=== PATIENT | male | born 1990 | race Caucasian/White ===

== ENCOUNTER → 2021-06-21 16:04 | Outpatient (BNVA) | payer OTHER, SELFPAY | PROVIDERS: PCP Pediatrics; Visit Provider Nurse Practitioner Family ==

== ENCOUNTER → 2021-09-16 13:15 | Outpatient (BNVA) | payer OTHER, SELFPAY | PROVIDERS: PCP Pediatrics; Visit Provider Nurse Practitioner Family | DX: Z13.89 Encounter for screening for other disorder (principal) ==

== ENCOUNTER → 2022-10-03 14:29 | Outpatient (BNVA) | payer OTHER, SELFPAY | PROVIDERS: PCP Internal Medicine; Visit Provider Nurse Practitioner Family | DX: G47.33 Obstructive sleep apnea (adult) (pediatric) (principal); G47.00 Insomnia, unspecified; G47.61 Periodic limb movement disorder; F95.2 Tourette's disorder ==

== ENCOUNTER 2022-12-22 13:10 | Outpatient (AMB) | payer OTHER, SELFPAY ==
--- NOTE | 2022-12-22 13:17 | MHC.OFFVIS ---
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 Required: No Allergies ascorbic acid [From Airborne (ascorbate sodium)] Allergy (Mild, Verified 12/22/22 13:25) Unknown glutamine [From Airborne (ascorbate sodium)] Allergy (Mild, Verified 12/22/22 13:25) Unknown herbal complex no.124 [From Airborne (ascorbate sodium)] Allergy (Mild, Verified 12/22/22 13:25) Unknown Latex, Natural Rubber Allergy (Mild, Verified 12/22/22 13:25) Unknown lysine HCl [From Airborne (ascorbate sodium)] Allergy (Mild, Verified 12/22/22 13:25) Unknown multivitamin with minerals [From Airborne (ascorbate sodium)] Allergy (Mild, Verified 12/22/22 13:25) Unknown perfume Allergy (Mild, Verified 12/22/22 13:25) Unknown risperidone [From Risperdal] Allergy (Mild, Verified 12/22/22 13:25) Unknown Sulfa (Sulfonamide Antibiotics) Allergy (Mild, Verified 12/22/22 13:25) unknown chemical based products Allergy (Mild, Uncoded 12/22/22 13:25) Unknown cleaning products Allergy (Mild, Uncoded 12/22/22 13:25) Unknown cologna Allergy (Mild, Uncoded 12/22/22 13:25) Unknown tennex Allergy (Mild, Uncoded 12/22/22 13:25) Unknown HPI HPI Comments History of Present Illness Details the patient is here for pulmonary evaluation. The patient is a 32-year-old gentleman with a known history of asthma in addition to underlying allergies. The patient also has a diagnosis of sleep apnea and has been on CPAP. Apparently while he was evaluated by Pulmonary in the past he had a abnormal alpha-1 antitrypsin study. The family is not way of any genotype or levels. Apparently the abnormal allele came from the dad. He is not clear if the mom has an abnormal early 0. Will have to redo the genotype at this time. Also check his alpha-1 levels. In the meantime the patient has been on Trelegy inhaler with good effect. He has not had to use his rescue inhaler. Typically less than twice a week. Has not required prednisone. He has not had allergy testing many years. Will go ahead and recheck his allergy testing and also his alpha-1 levels. The patient seems to be stable on his current therapy. Will have him come back with pulmonary function studies. Patient also continues uses CPAP. He has been followed closely by Neurology. The CPAP therapy appears to be affecting beneficial. He does use it for more than 4 hours a night. He does use a nasal mask any does get a very dry mouth. Explained to him this can result in poor disease of the gingiva and 2 DKA. Therefore, the patient will start using a chinstrap. I will request from from his [employer], and regional. [facility] Medical History (Updated 12/22/22 @ 13:51 by Julian Reed MD) Fjtbp-1-inmzbtqctav deficiency Anxiety Arthritis Aspergers' syndrome Asthma Autism Cervicalgia Depression Dyspnea Fibromyalgia GERD (gastroesophageal reflux disease) Hyperreflexia Hypothyroidism IBS (irritable bowel syndrome) Myofascial pain syndrome PTSD (post-traumatic stress disorder) Rhinitis Scoliosis Seizure Tachycardia Tourette syndrome Social History (Updated 10/03/22 @ 14:35 by Alexus Esparza CMA) Alcohol intake: never Patient Tobacco Use Status: Never used Tobacco Review of Systems Const Denies fever(s) Eyes Denies change in vision ENT Denies change in voice and Reports nasal congestion Card Denies chest pain Resp Reports cough and Reports wheezing GI Reports no additional complaints Musc Reports no additional complaints Skin/Breast Denies rash Neuro Reports no additional complaints Abran/Lymph Denies lymphadenopathy Aller/Immun Reports wheezing Physical Exam Vital Signs: Last Vital Signs Pulse 69 12/22/22 13:19 BP 100/60 12/22/22 13:19 Pulse Ox 95 12/22/22 13:19 Oxygen Delivery Method Room Air 12/22/22 13:19 BMI result Body Mass Index 28.3 Const General: comfortable HEENT Head: Yes atraumatic Neck Neck: Yes supple Chest Chest palpation & inspection: normal inspection of the chest Resp Effort & Inspection: normal respiratory effort Auscultation: clear to auscultation bilaterally and no wheezes Cardio Rate: regular rate Rhythm: regular rhythm Heart sounds: S1 normal heart sound present and S2 normal heart sound present GI Palpation (GI): Soft to palpation Skin General skin exam: no rashes or lesions noted Extrem General: Yes no clubbing, cyanosis or edema Assessment & Plan Assessment & Plan (1) Obstructive sleep apnea (adult) (pediatric): Comment: Baseline ahi 19/hr Supine 76/hr O2 paty 85 %. Code(s): G47.33 - Obstructive sleep apnea (adult) (pediatric) (2) Asthma: Code(s): J45.909 - Unspecified asthma, uncomplicated (3) Ueeze-2-ogivdwamvdb deficiency: Code(s): E88.01 - Ovhyu-4-bmaggqnfnqp deficiency Plan Continue Trelegy MARCE as needed continue singulair continue anti histamine therapy continue APAP as per neurology, needs a chin strap Kalyani 1 genotype and levels today Bloodwork / Allergy testing PFTs F/U 2-3 months Orders: Orders Alpha 1 Anti-trypsin Today E88.01 - Hlxrf-8-qyfacwkppbg deficiency, J45.909 - Unspecified asthma, uncomplicated Rast Allergen Today E88.01 - Ibjfe-1-hrfbeijnhbx deficiency, J45.909 - Unspecified asthma, uncomplicated Complete Blood Count Auto Diff Today E88.01 - Ksgcy-0-fpprlgrtgqn deficiency, J45.909 - Unspecified asthma, uncomplicated Erythrocyte Sedimentation Rate Today E88.01 - Wvqjx-7-focshckzecg deficiency, J45.909 - Unspecified asthma, uncomplicated Immunoglobulin E Today E88.01 - Xxupf-8-hwzadggdnzx deficiency, J45.909 - Unspecified asthma, uncomplicated PFT pulmonary function test Today J45.909 - Unspecified asthma, uncomplicated Medications: New albuterol sulfate 90 mcg/actuation 2 inhalations inhalation Q6H PRN 18 grams 12RF shortness of breath or wheezing 30 days J44.9 - Chronic obstructive pulmonary disease, unspecified, J45.909 - Unspecified asthma, uncomplicated Changed From cetirizine 10 mg PO DAILY J45.909 - Unspecified asthma, uncomplicated To cetirizine 10 mg PO DAILY 30 tabs 11RF 30 days J45.909 - Unspecified asthma, uncomplicated From azapkopbpqr-jpjccztyv-oadljtxy 100-62.5-25 mcg (Trelegy Ellipta) 1 inh inhalation DAILY J45.90 - Unspecified asthma, uncomplicated To nooxeyqjown-vucupglfl-hbdisnfi 100-62.5-25 mcg (Trelegy Ellipta) 1 inh inhalation DAILY 60 ea 11RF 30 days J45.909 - Unspecified asthma, uncomplicated From montelukast 10 mg PO DAILY J45.909 - Unspecified asthma, uncomplicated To montelukast 10 mg PO DAILY 30 tabs 11RF 30 days J45.909 - Unspecified asthma, uncomplicated Coding Level of Care Code New Pt Level 4 (55389) Diagnoses Obstructive sleep apnea (adult) (pediatric) G47.33 Asthma J45.909 Rvems-9-mmoovkehpcv deficiency E88.01 Time Spent (min) 40
[2022-12-22 13:19] VITALS: BP 100/60; PULSE 69; O2SAT 95; BMI 28.3
== END 2022-12-22 13:56 | disposition home or self-care (01) ==
PROVIDERS: PCP Internal Medicine; Visit Provider Hospitalist
DX: G47.33 Obstructive sleep apnea (adult) (pediatric) (principal); J45.909 Unspecified asthma, uncomplicated; E88.01 Alpha-1-antitrypsin deficiency
CPT/HCPCS: 99204

== ENCOUNTER 2022-12-22 13:10 | Outpatient (REF) | payer OTHER, SELFPAY ==
[2022-12-22 14:28] LABS: MANUAL DIFF FLAG NO
[2022-12-22 15:09] LABS: Basophils Percent Auto 0.6 % (0-2); Eosinophils Absolute Auto 0.2 X10*3/uL (0.0-0.4); Eosinophils Percent Auto 3.4 % (0-4); Hematocrit 46.5 % (42.0-52.0); Imm Gran Abs Auto 0.01 X10*3/uL (0.00-0.03); Imm Gran Pct Auto 0.2 % (0.0-0.4); Lymphocytes Absolute Auto 1.4 X10*3/uL (1.2-4.9); Lymphocytes Percent Auto 28.1 % (20-40); Mean Corpuscular HGB Conc 34.4 g/dl (31.0-36.0); Mean Corpuscular Hemoglobin 30.4 pg (27.0-33.0); Mean Corpuscular Volume 88.2 fL (80.0-98.0); Mean Platelet Volume 10.5 fL (9.4-12.4); Monocytes Absolute Auto 0.4 X10*3/uL (0.1-1.2); Monocytes Percent Auto 7.8 % (2-11); Neutrophils Percent Auto 59.9 % (45-73); Platelet Count 164 X10*3/uL (160-400); Red Blood Count 5.27 X10*6/uL (4.60-5.80); Red Cell Distribution Width 12.6 % (11.0-16.0)
[2022-12-22 16:00] LABS: Erythrocyte Sedimentation Rate 5 MM/HR (0-15)
[2022-12-26 15:54] LABS: Alpha 1 Anti-trypsin 143 mg/dL (83-199)
[2022-12-26 20:08] LABS: Immunoglobulin E 4 kU/L (<OR=114)
== END 2022-12-22 13:11 | disposition home or self-care (01) ==
LOC: HO.LAB 13:10
PROVIDERS: PCP Internal Medicine; Visit Provider Hospitalist
DX: J45.909 Unspecified asthma, uncomplicated (principal); G47.33 Obstructive sleep apnea (adult) (pediatric); E88.01 Alpha-1-antitrypsin deficiency
CPT/HCPCS: 36415; 82103; 82785; 85025; 85652; 86003; 99202

== ENCOUNTER 2023-01-09 12:55 | Outpatient (REF) | payer OTHER, SELFPAY ==
--- NOTE | 2023-01-09 14:02 | PFT_ITS ---
INDICATION: Asthma and dyspnea. SPIROMETRY: The FEV1 to FVC 38% with an FEV1 of 1.38 L, which is 44% predicted and FVC of 4.85 L, which is 95% predicted. No significant response to bronchodilators noted. Maximum voluntary ventilation 33% predicted. LUNG VOLUMES: Total lung capacity 90% predicted with a residual volume 58% predicted and expiratory reserve volume of 44% predicted. DIFFUSION CAPACITY: DLCO of 71% predicted. COMPARISONS: None. INTERPRETATION: The patient does have an obstructive ventilatory defect consistent with severe obstructive airway disease. No significant response to bronchodilators noted, and there is a severe decrease in the maximum voluntary ventilation which could be secondary to deconditioning. Although cannot rule out neuromuscular conditions. Lung volumes demonstrate a normal total lung capacity and a decrease in the expiratory reserve volume secondary to an elevated BMI. Patient has a mild diffusion impairment. Clinical correlation warranted. Julian Reed MD MR/MODL / [id number]
== END 2023-01-09 12:56 | disposition home or self-care (01) ==
LOC: HO.RESP 12:55
PROVIDERS: PCP Internal Medicine; Visit Provider Hospitalist
DX: J45.909 Unspecified asthma, uncomplicated (principal)
CPT/HCPCS: 94010; 94727; 94729

== ENCOUNTER → 2023-01-09 14:02 | Outpatient (BNV) | payer OTHER, SELFPAY | PROVIDERS: PCP Internal Medicine; Visit Provider Hospitalist | DX: J45.909 Unspecified asthma, uncomplicated (principal) | CPT/HCPCS: 94060; 94727; 94729 ==

== ENCOUNTER 2023-01-31 12:35 | Outpatient (AMB) | payer OTHER, SELFPAY ==
[2023-01-31 13:12] VITALS: PULSE 88; O2SAT 95; BMI 28.3
--- NOTE | 2023-01-31 13:12 | MHC.OFFVIS ---
Intake Vital Signs 01/31/23 13:12 Height 5 ft 8 in Weight 186 lb 4.65 oz BMI 28.3 Pulse 88 Pulse Source Pulse Oximeter Pulse Oximetry (%) 95 Oxygen Delivery Method Room Air Intake Visit Reasons: DYLAN/Asthma Full Time Paramedic Required: No Allergies ascorbic acid [From Airborne (ascorbate sodium)] Allergy (Mild, Verified 01/31/23 13:13) Unknown glutamine [From Airborne (ascorbate sodium)] Allergy (Mild, Verified 01/31/23 13:13) Unknown herbal complex no.124 [From Airborne (ascorbate sodium)] Allergy (Mild, Verified 01/31/23 13:13) Unknown Latex, Natural Rubber Allergy (Mild, Verified 01/31/23 13:13) Unknown lysine HCl [From Airborne (ascorbate sodium)] Allergy (Mild, Verified 01/31/23 13:13) Unknown multivitamin with minerals [From Airborne (ascorbate sodium)] Allergy (Mild, Verified 01/31/23 13:13) Unknown perfume Allergy (Mild, Verified 01/31/23 13:13) Unknown risperidone [From Risperdal] Allergy (Mild, Verified 01/31/23 13:13) Unknown Sulfa (Sulfonamide Antibiotics) Allergy (Mild, Verified 01/31/23 13:13) unknown chemical based products Allergy (Mild, Uncoded 01/31/23 13:13) Unknown cleaning products Allergy (Mild, Uncoded 01/31/23 13:13) Unknown cologna Allergy (Mild, Uncoded 01/31/23 13:13) Unknown tennex Allergy (Mild, Uncoded 01/31/23 13:13) Unknown HPI HPI Comments History of Present Illness Details The patient is a 32-year-old gentleman with a known history of asthma in addition to underlying allergies. The patient also has a diagnosis of sleep apnea and has been on CPAP. Apparently while he was evaluated by Pulmonary in the past he had a abnormal alpha-1 antitrypsin study. The family is not way of any genotype or levels. Apparently the abnormal allele came from the dad. He is not clear if the mom has an abnormal early 0. Will have to redo the genotype at this time. Also check his alpha-1 levels. In the meantime the patient has been on Trelegy inhaler with good effect. He has not had to use his rescue inhaler. Typically less than twice a week. Has not required prednisone. He has not had allergy testing many years. Will go ahead and recheck his allergy testing and also his alpha-1 levels. The patient seems to be stable on his current therapy. Will have him come back with pulmonary function studies. Patient also continues uses CPAP. He has been followed closely by Neurology. The CPAP therapy appears to be affecting beneficial. He does use it for more than 4 hours a night. He does use a nasal mask any does get a very dry mouth. Explained to him this can result in poor disease of the gingiva and 2 DKA. Therefore, the patient will start using a chinstrap. I will request from from his [employer], and regional. 01/31/2023 The patient is here for pulmonary follow-up visit. Overall the patient still about the same. Complaining of dyspnea on exertion. Specially going up a flight of stairs. We did go for brief walking oximetry today and the patient and maintain a pulse ox of 96%. Although, became tachycardic to about 115 when going up flight of stairs. We also reviewed his pulmonary function studies. He does have a severe obstruction which is concerning. He did have a chest x-ray back in July without any significant diagnostic information. Based on his severe obstruction on his PFTs and his ongoing symptoms of dyspnea on maximum respiratory therapy I will go ahead and request a CT scan of the chest with inspiratory and expiratory cuts to better address the obstructive physiology. In addition we did discuss the off 1 testing. He had a suspicion of alpha-1 antitrypsin deficiency. However, his genotype came back normal, mm. His levels are also within normal limits. 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 therefore, the patient does not have a 1-2% efficiency which is good for him will continue with current respiratory therapy. The patient will increase his exercise activity. Did give information about online pulmonary rehab specially since he lives further out otherwise he can consider an in person just has to call the office and will put a request. Otherwise the patient will return in 3-4 months to review his CT scan of the chest. [facility] Medical History (Updated 01/31/23 @ 21:31 by Julian Reed MD) Eybgq-2-huvxowlbfto deficiency Anxiety Arthritis Aspergers' syndrome Asthma Asthma-COPD overlap syndrome Autism Cervicalgia Depression Dyspnea Fibromyalgia GERD (gastroesophageal reflux disease) Hyperreflexia Hypothyroidism IBS (irritable bowel syndrome) Myofascial pain syndrome PTSD (post-traumatic stress disorder) Rhinitis Scoliosis Seizure Tachycardia Tourette syndrome Social History (Updated 10/03/22 @ 14:35 by Alexus Esparza [facility]) Alcohol intake: never Patient Tobacco Use Status: Never used Tobacco Review of Systems Const Denies fever(s) Eyes Denies change in vision ENT Denies change in voice and Reports nasal congestion Card Denies chest pain, Reports palpitations and Reports dyspnea on exertion Resp Reports cough, Reports dyspnea on exertion and Reports wheezing GI Reports no additional complaints Musc Reports no additional complaints Skin/Breast Denies rash Neuro Reports no additional complaints Endo Reports palpitations Abran/Lymph Denies lymphadenopathy Aller/Immun Reports wheezing Physical Exam Vital Signs: Last Vital Signs Pulse 88 01/31/23 13:12 Pulse Ox 95 01/31/23 13:12 Oxygen Delivery Method Room Air 01/31/23 13:12 BMI result Body Mass Index 28.3 Const General: comfortable HEENT Head: Yes atraumatic Neck Neck: Yes supple Chest Chest palpation & inspection: normal inspection of the chest Resp Effort & Inspection: normal respiratory effort Auscultation: no wheezes and diminished lung sounds Cardio Rate: regular rate Rhythm: regular rhythm Heart sounds: S1 normal heart sound present and S2 normal heart sound present GI Palpation (GI): Soft to palpation Skin General skin exam: no rashes or lesions noted Extrem General: Yes no clubbing, cyanosis or edema Assessment & Plan Assessment & Plan (1) Asthma-COPD overlap syndrome: Comment: severe Code(s): J44.9 - Chronic obstructive pulmonary disease, unspecified (2) Asthma: Code(s): J45.909 - Unspecified asthma, uncomplicated (3) Xcisj-0-tmapkyullzp deficiency: Comment: No evidence of alpha 1 anti trypsin deficiency, genotype MM with normal levels Code(s): E88.01 - Lxomh-2-udjrcseiloa deficiency (4) Obstructive sleep apnea (adult) (pediatric): Comment: Baseline ahi 19/hr Supine 76/hr O2 paty 85 %. Code(s): G47.33 - Obstructive sleep apnea (adult) (pediatric) Plan Continue Trelegy MARCE as needed continue singulair continue anti histamine therapy continue APAP as per neurology, Kalyani 1 genotype and levels are all normal. CT chest with inspiratory/expiratory cuts F/U 3-4 months Orders: Orders CT chest wo IV con Today J44.9 - Chronic obstructive pulmonary disease, unspecified Coding Level of Care Code Est Pt Level 4 (96340) Diagnoses Asthma-COPD overlap syndrome J44.9 Asthma J45.909 Bidxi-8-kvniuwhdcjl deficiency E88.01 Obstructive sleep apnea (adult) (pediatric) G47.33 Time Spent (min) 20
== END 2023-01-31 13:40 | disposition home or self-care (01) ==
PROVIDERS: PCP Internal Medicine; Visit Provider Hospitalist
DX: J45.909 Unspecified asthma, uncomplicated (principal); G47.33 Obstructive sleep apnea (adult) (pediatric); E88.01 Alpha-1-antitrypsin deficiency
CPT/HCPCS: 99214

== ENCOUNTER → 2023-01-31 12:35 | Outpatient (BNVA) | payer OTHER, SELFPAY | PROVIDERS: PCP Internal Medicine; Visit Provider Hospitalist | DX: J45.909 Unspecified asthma, uncomplicated (principal); E88.01 Alpha-1-antitrypsin deficiency; G47.33 Obstructive sleep apnea (adult) (pediatric); J44.9 Chronic obstructive pulmonary disease, unspecified | CPT/HCPCS: 99212 ==

== ENCOUNTER 2023-03-03 13:00 | Outpatient (REF) | payer OTHER, SELFPAY ==
--- NOTE | ~2023-03-03 | CT_ITS ---
EXAMINATION: CT CHEST WITHOUT CONTRAST CLINICAL INFORMATION: COPD. COMPARISON: None available. TECHNIQUE: Multidetector volumetric CT imaging of the chest was done. Axial MIP volume rendering provided. Sagittal and coronal reformatted images were obtained. This CT examination was performed using dose optimization techniques as appropriate, variously including the following: *Automated exposure control *Adjustment of mA and/or kV according to patient size (this includes techniques or standardized protocols for targeted exams where dose is matched to indication/reason for exam; i.e. extremities or head) *Use of iterative reconstruction technique DLP: 177 mGy-cm FINDINGS: LUNGS: No evidence of emphysema or interstitial lung disease. Mild diffuse airway wall thickening without mucous plugging. Subtle mosaic attenuation at the lung bases consistent with air trapping. There are scattered subpleural nodules throughout both lungs, the largest in the right lower lobe measuring 6 mm average diameter. In a patient of this age these are most likely inflammatory versus parenchymal lymph nodes. Follow-up as per clinical history. MEDIASTINUM: No adenopathy. Residual thymic tissue. No pericardial effusion. Thoracic aorta is normal in caliber. CORONARY ARTERY CALCIFICATION: None visualized on this study. PLEURA: No effusion. There is a 2.5 x 1.0 x 1.6 cm smooth, elliptical extrapleural nodule along the undersurface of the right posterior eighth rib consistent with a schwannoma. AXILLA: No lymphadenopathy. UPPER ABDOMEN: Hepatic steatosis. The spleen is incompletely visualized but appears mildly enlarged. OSSEOUS STRUCTURES: No suspicious osseous lesions. CT/CT chest wo IV con IMPRESSION: Mild diffuse airway wall thickening and subtle mosaic attenuation consistent with air trapping. These findings are consistent with the clinical history of COPD. Scattered subpleural nodules measuring up to 6 mm in size are most likely inflammatory or parenchymal lymph nodes in a patient of this age. Follow-up as per clinical history. The Fleischner guidelines do not apply in this age group. 2.5 cm smooth elliptical extrapleural nodule along the undersurface of the right posterior eighth rib consistent with a schwannoma. Hepatic steatosis. Incompletely visualized spleen, but suspect mild splenomegaly.
== END 2023-03-03 13:01 | disposition home or self-care (01) ==
LOC: HO.CT 13:00
PROVIDERS: PCP Internal Medicine; Visit Provider Hospitalist
DX: J44.9 Chronic obstructive pulmonary disease, unspecified (principal)
CPT/HCPCS: 71250

== ENCOUNTER → 2023-04-03 15:41 | Outpatient (BNVA) | payer OTHER, SELFPAY | PROVIDERS: PCP Internal Medicine; Visit Provider Nurse Practitioner Family ==

== ENCOUNTER → 2023-07-14 11:51 | Outpatient (BNVA) | payer OTHER, SELFPAY | PROVIDERS: PCP Internal Medicine; Visit Provider Nurse Practitioner Family ==

== ENCOUNTER → 2023-07-17 14:41 | Outpatient (REF) | payer OTHER, SELFPAY | LOC: HO.SL 14:41 | PROVIDERS: PCP Internal Medicine; Visit Provider Nurse Practitioner Family | DX: G47.33 Obstructive sleep apnea (adult) (pediatric) (principal); R06.83 Snoring; R00.0 Tachycardia, unspecified; J44.9 Chronic obstructive pulmonary disease, unspecified | CPT/HCPCS: 95806 ==

== ENCOUNTER → 2023-07-17 15:01 | Outpatient (BNV) | payer OTHER, SELFPAY | PROVIDERS: PCP Internal Medicine; Visit Provider Internal Medicine | DX: R06.83 Snoring (principal) | CPT/HCPCS: 95806 ==

== ENCOUNTER 2023-08-04 14:49 | Outpatient (AMB) | payer OTHER, SELFPAY ==
[2023-08-04 14:50] VITALS: BMI 29.6
--- NOTE | 2023-08-04 14:50 | MHC.OFFVIS ---
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 Required: No Allergies ascorbic acid [From Airborne (ascorbate sodium)] Allergy (Mild, Verified 08/04/23 14:51) Unknown glutamine [From Airborne (ascorbate sodium)] Allergy (Mild, Verified 08/04/23 14:51) Unknown herbal complex no.124 [From Airborne (ascorbate sodium)] Allergy (Mild, Verified 08/04/23 14:51) Unknown Latex, Natural Rubber Allergy (Mild, Verified 08/04/23 14:51) Unknown lysine HCl [From Airborne (ascorbate sodium)] Allergy (Mild, Verified 08/04/23 14:51) Unknown multivitamin with minerals [From Airborne (ascorbate sodium)] Allergy (Mild, Verified 08/04/23 14:51) Unknown perfume Allergy (Mild, Verified 08/04/23 14:51) Unknown risperidone [From Risperdal] Allergy (Mild, Verified 08/04/23 14:51) Unknown Sulfa (Sulfonamide Antibiotics) Allergy (Mild, Verified 08/04/23 14:51) unknown chemical based products Allergy (Mild, Uncoded 08/04/23 14:51) Unknown cleaning products Allergy (Mild, Uncoded 08/04/23 14:51) Unknown cologna Allergy (Mild, Uncoded 08/04/23 14:51) Unknown tennex Allergy (Mild, Uncoded 08/04/23 14:51) Unknown HPI HPI Comments History of Present Illness Details The patient is a 32-year-old gentleman with a known history of asthma in addition to underlying allergies. The patient also has a diagnosis of sleep apnea and has been on CPAP. Apparently while he was evaluated by Pulmonary in the past he had a abnormal alpha-1 antitrypsin study. The family is not way of any genotype or levels. Apparently the abnormal allele came from the dad. He is not clear if the mom has an abnormal early 0. Will have to redo the genotype at this time. Also check his alpha-1 levels. In the meantime the patient has been on Trelegy inhaler with good effect. He has not had to use his rescue inhaler. Typically less than twice a week. Has not required prednisone. He has not had allergy testing many years. Will go ahead and recheck his allergy testing and also his alpha-1 levels. The patient seems to be stable on his current therapy. Will have him come back with pulmonary function studies. Patient also continues uses CPAP. He has been followed closely by Neurology. The CPAP therapy appears to be affecting beneficial. He does use it for more than 4 hours a night. He does use a nasal mask any does get a very dry mouth. Explained to him this can result in poor disease of the gingiva and 2 DKA. Therefore, the patient will start using a chinstrap. I will request from from his [employer], and [facility]. 01/31/2023 The patient is here for pulmonary follow-up visit. Overall the patient still about the same. Complaining of dyspnea on exertion. Specially going up a flight of stairs. We did go for brief walking oximetry today and the patient and maintain a pulse ox of 96%. Although, became tachycardic to about 115 when going up flight of stairs. We also reviewed his pulmonary function studies. He does have a severe obstruction which is concerning. He did have a chest x-ray back in July without any significant diagnostic information. Based on his severe obstruction on his PFTs and his ongoing symptoms of dyspnea on maximum respiratory therapy I will go ahead and request a CT scan of the chest with inspiratory and expiratory cuts to better address the obstructive physiology. In addition we did discuss the off 1 testing. He had a suspicion of alpha-1 antitrypsin deficiency. However, his genotype came back normal, mm. His levels are also within normal limits. 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 therefore, the patient does not have a 1-2% efficiency which is good for him will continue with current respiratory therapy. The patient will increase his exercise activity. Did give information about online pulmonary rehab specially since he lives further out otherwise he can consider an in person just has to call the office and will put a request. Otherwise the patient will return in 3-4 months to review his CT scan of the chest. 08/04/2023 the patient is here for pulmonary follow-up visit. The patient is feeling a lot better after his surgery. had been complaining of back pain and neck pain and this discomfort over that area and his symptoms have subsided after the surgical intervention. The patient tolerated procedure well. In the meantime he has been monitor closely by Neurology regarding the underlying sleep apnea. The patient has been on CPAP. The CPAP therapy has been affecting beneficial. He does use it for more than 4 hours a night. Again he will continue to work with Neurology for further adjustments. His mother was wondering about a sleep study in the hospital to further address sleep apnea. I did encourage them to seek out further recommendations from Neurology. The patient initially was sent over to have assessment of alpha-1 antitrypsin deficiency. His genotype was normal. His alpha-1 levels were within normal. At this point is on a reasonable to check the alpha-1 levels 1 more time to make sure that continued to be stable. Will plan to have repeat blood work next year. In regards of imaging studies. The patient should have a repeat CT scan To make sure there is no recurrence. 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 PTSD (post-traumatic stress disorder) Anxiety Tachycardia Hyperreflexia Scoliosis IBS (irritable bowel syndrome) Rhinitis Cervicalgia Myofascial pain syndrome Fibromyalgia Dyspnea Autism Depression Seizure Aspergers' syndrome Hypothyroidism GERD (gastroesophageal reflux disease) Asthma Arthritis Tourette syndrome Social History Alcohol intake: never Patient Tobacco Use Status: Never used Tobacco Review of Systems Const Denies fever(s) Eyes Denies change in vision ENT Denies change in voice and Reports nasal congestion Card Denies chest pain, Reports palpitations and Reports dyspnea on exertion Resp Reports cough, Reports dyspnea on exertion and Reports wheezing GI Reports no additional complaints Musc Reports no additional complaints Skin/Breast Denies rash Neuro Reports no additional complaints Endo Reports palpitations Abran/Lymph Denies lymphadenopathy Aller/Immun Reports wheezing Physical Exam Vital Signs: BMI result Body Mass Index 29.6 Const General: comfortable HEENT Head: Yes atraumatic Neck Neck: Yes supple Chest Chest palpation & inspection: normal inspection of the chest Resp Effort & Inspection: normal respiratory effort Auscultation: no wheezes and diminished lung sounds Cardio Rate: regular rate Rhythm: regular rhythm Heart sounds: S1 normal heart sound present and S2 normal heart sound present GI Palpation (GI): Soft to palpation Skin General skin exam: no rashes or lesions noted Extrem General: Yes no clubbing, cyanosis or edema Assessment & Plan Assessment & Plan (1) Asthma-COPD overlap syndrome: Comment: severe Code(s): J44.9 - Chronic obstructive pulmonary disease, unspecified (2) Asthma: Code(s): J45.909 - Unspecified asthma, uncomplicated Qualifiers: Asthma complication type: uncomplicated Asthma persistence: persistent Asthma severity: moderate Qualified Code(s): J45.40 - Moderate persistent asthma, uncomplicated (3) Iyfpp-2-xsytdoxkhte deficiency: Comment: No evidence of alpha 1 anti trypsin deficiency, genotype MM with normal levels Code(s): E88.01 - Pzfbq-0-lcovxnhimrh deficiency (4) Obstructive sleep apnea (adult) (pediatric): Comment: Baseline ahi 19/hr Supine 76/hr O2 paty 85 %. Code(s): G47.33 - Obstructive sleep apnea (adult) (pediatric) (5) ILD (interstitial lung disease): Comment: DIP changes on lung parenchyma, which are smoking related lung changes Code(s): J84.9 - Interstitial pulmonary disease, unspecified Plan Continue Trelegy MARCE as needed continue singulair continue anti histamine therapy continue APAP as per neurology, Kalyani 1 genotype and levels are all normal, will check the alpha levels one more time to make sure the levels stay normal CT chest Fall 2023 Need to review smoking exposure with ILD changes on path report F/U 3-4 months Orders: Orders CT chest wo IV con 03/12/24 D36.14 - Benign neoplasm of peripheral nerves and autonomic nervous system of thorax, R91.1 - Solitary pulmonary nodule Alpha 1 Anti-trypsin 08/04/23 E88.01 - Szndl-2-qvlaurdarbw deficiency Erythrocyte Sedimentation Rate 08/04/23 E88.01 - Jktwu-9-lfkdprnrygl deficiency Complete Blood Count Auto Diff 08/04/23 E88.01 - Tnrtn-5-zqvamlcuebd deficiency Basic Metabolic Panel 08/04/23 E88.01 - Avkua-1-huydxibevsb deficiency Telehealth Telehealth Location of provider rendering services: practice address Location of patient: address on file Patient Identification confirmed using: Name, : Yes Telehealth method: voice only Patient verbally consented to treatment: Yes Patient verbally consented to billing insurance company: Yes Patient informed of any privacy concerns related to visit: Yes Coding Level of Care Code Est Pt Level 4 (86497) Diagnoses Asthma-COPD overlap syndrome J44.9 Moderate persistent asthma without complication J45.40 Asthma complication type: uncomplicated Asthma persistence: persistent Asthma severity: moderate Xzwwu-2-bsxarmvovah deficiency E88.01 Obstructive sleep apnea (adult) (pediatric) G47.33 ILD (interstitial lung disease) J84.9 Time Spent (min) 17
== END 2023-08-04 15:09 | disposition home or self-care (01) ==
LOC: HO.HPS 14:50
PROVIDERS: PCP Internal Medicine; Visit Provider Hospitalist
DX: J44.9 Chronic obstructive pulmonary disease, unspecified (principal); J45.40 Moderate persistent asthma, uncomplicated; E88.01 Alpha-1-antitrypsin deficiency; G47.33 Obstructive sleep apnea (adult) (pediatric); J84.9 Interstitial pulmonary disease, unspecified
CPT/HCPCS: 99214

== ENCOUNTER → 2023-08-04 14:49 | Outpatient (BNVA) | payer OTHER, SELFPAY | PROVIDERS: PCP Internal Medicine; Visit Provider Hospitalist | DX: J44.9 Chronic obstructive pulmonary disease, unspecified (principal); J45.40 Moderate persistent asthma, uncomplicated; J84.9 Interstitial pulmonary disease, unspecified; E88.01 Alpha-1-antitrypsin deficiency; G47.33 Obstructive sleep apnea (adult) (pediatric) | CPT/HCPCS: 99212 ==

== ENCOUNTER 2023-09-26 13:16 | Outpatient (REF) | payer OTHER, SELFPAY ==
[2023-09-26 13:42] LABS: MANUAL DIFF FLAG NO
[2023-09-26 14:21] LABS: Basophils Percent Auto 1.1 % (0-2); Eosinophils Absolute Auto 0.2 X10*3/uL (0.0-0.4); Eosinophils Percent Auto 4.5 % (0-4); Hematocrit 44.4 % (42.0-52.0); Hemoglobin 15.6 g/dl (14.0-18.0); Imm Gran Abs Auto 0.02 X10*3/uL (0.00-0.03); Imm Gran Pct Auto 0.5 % (0.0-0.4); Lymphocytes Absolute Auto 1.4 X10*3/uL (1.2-4.9); Lymphocytes Percent Auto 37.7 % (20-40); Mean Corpuscular HGB Conc 35.1 g/dl (31.0-36.0); Mean Corpuscular Hemoglobin 30.4 pg (27.0-33.0); Mean Corpuscular Volume 86.5 fL (80.0-98.0); Mean Platelet Volume 10.3 fL (9.4-12.4); Monocytes Absolute Auto 0.3 X10*3/uL (0.1-1.2); Monocytes Percent Auto 7.4 % (2-11); Neutrophils Absolute Auto 1.9 x10*3/uL (2.0-8.3); Neutrophils Percent Auto 48.8 % (45-73); Platelet Count 144 X10*3/uL (160-400); Red Blood Count 5.13 X10*6/uL (4.60-5.80); Red Cell Distribution Width 12.5 % (11.0-16.0); White Blood Count 3.8 X10*3/uL (4.8-10.8)
[2023-09-26 15:01] LABS: Erythrocyte Sedimentation Rate 3 MM/HR (0-15)
[2023-09-26 15:21] LABS: Anion Gap 14 (12-20); Blood Urea Nitrogen 12 mg/dL (9-16); Calcium 9.8 mg/dL (8.4-10.2); Carbon Dioxide 24 mmol/L (22-29); Chloride 105 mmol/L (96-108); Estimated Glomerular Filt Rate > 60; Glucose Random 126 mg/dL (60-115); Potassium 3.6 mmol/L (3.3-5.1); Sodium 139 mmol/L (135-145)
[2023-09-27 14:28] LABS: Alpha 1 Anti-trypsin 152 mg/dL (83-199)
== END 2023-09-26 13:17 | disposition home or self-care (01) ==
LOC: HO.LAB 13:16
PROVIDERS: PCP Internal Medicine; Visit Provider Hospitalist
DX: E88.01 Alpha-1-antitrypsin deficiency (principal)
CPT/HCPCS: 36415; 80048; 82103; 85025; 85652

== ENCOUNTER 2024-01-15 12:22 | Outpatient (AMB) | payer OTHER, SELFPAY ==
--- NOTE | 2024-01-15 12:37 | MHC.OFFVIS ---
Vital Signs 01/15/24 12:39 Height 5 ft 8 in Weight 191 lb 2 oz BMI 29.1 BP 116/78 Blood Pressure Location Rt brachial Position Sitting Respiration 16 Pulse 81 Pulse Source Pulse Oximeter Pulse Oximetry (%) 96 Oxygen Delivery Method Room Air Intake Visit Reasons: Follow up-CONF Intake Note: Pt presents to the office for a 6 month follow up for sleep apnea. Bottom Crane Operator Required: No Allergies ascorbic acid [From Airborne (ascorbate sodium)] Allergy (Mild, Verified 01/15/24 12:38) Unknown glutamine [From Airborne (ascorbate sodium)] Allergy (Mild, Verified 01/15/24 12:38) Unknown herbal complex no.124 [From Airborne (ascorbate sodium)] Allergy (Mild, Verified 01/15/24 12:38) Unknown Latex, Natural Rubber Allergy (Mild, Verified 01/15/24 12:38) Unknown lysine HCl [From Airborne (ascorbate sodium)] Allergy (Mild, Verified 01/15/24 12:38) Unknown multivitamin with minerals [From Airborne (ascorbate sodium)] Allergy (Mild, Verified 01/15/24 12:38) Unknown perfume Allergy (Mild, Verified 01/15/24 12:38) Unknown risperidone [From Risperdal] Allergy (Mild, Verified 01/15/24 12:38) Unknown Sulfa (Sulfonamide Antibiotics) Allergy (Mild, Verified 01/15/24 12:38) unknown chemical based products Allergy (Mild, Uncoded 01/15/24 12:38) Unknown cleaning products Allergy (Mild, Uncoded 01/15/24 12:38) Unknown cologna Allergy (Mild, Uncoded 01/15/24 12:38) Unknown tennex Allergy (Mild, Uncoded 01/15/24 12:38) Unknown Medication List - Last Reconciled 01/15/24 by EDUARDO Perry albuterol sulfate 90 mcg/actuation 2 inhalations inhalation Q6H PRN 30 days cetirizine 10 mg PO DAILY 30 days cholecalciferol (vitamin D3) 50 mcg PO DAILY diazepam 5 mg PO BEDTIME PRN yshauzukjns-mnzlspqjn-kftygexi 100-62.5-25 mcg (Trelegy Ellipta) 1 inh inhalation DAILY 30 days levothyroxine 88 mcg PO DAILY linaclotide (Linzess) 72 mcg PO DAILY montelukast 10 mg PO DAILY 90 days pantoprazole (Protonix) 40 mg PO BID quetiapine 200 mg PO BEDTIME sertraline (Zoloft) 150 mg PO QAM HPI Comments Details: 33-yr-old male presents for follow-up visit of sleep apnea, accompanied by his mother. Pt denies any significant interval medical history changes. Pt underwent HST which did not show evidence for obstructive sleep apnea dx. HST showed AHI 1.7/h (apneas 1.7/hr, hypopneas 0/hr), O2 paty 86% (SpO2 < 90% x's 79.8 min and < 88% x's 3.2min), average SpO2 91%. Thus, pt was advised to undergo in-lab sleep study. Unfortunately, pt became anxious prior to be able to complete the in-lab sleep study, and the sleep study was not initiated. Pt states the anxiety was triggered by the sleep attendant trying to develop a plan to ensure the patient would sleep > 5 hours and repeatedly reviewing the sleep study protocol. Pt is interested in repeating the sleep study, if he can do this at another location. He states he is still using his APAP machine- however I cannot access his [employer] compliance data today. Pt states he has always been a shallow breather. He does have asthma, ILD dx's. Pt's mother notes that pt is doing his pulmonary exercises- using an incentive spirometer and doing better with this. Pt continues to be followed by pulmonology and has upcoming thoracic surgery f/u. Pt's mother asks if pt's medications could be contributing to cognitive difficulties in the morning. Pt does take diazepam and quetiapine qhs- pt states around 3-4am when he plans to go to sleep. Mother states he cannot sleep without the medications- but wonders if the quetiapine dose could be reduced some. His usual wake-up time is in early afternoon, can be 3pm. He endorses feeling cognitively slow upon awakening which takes a while to clear. 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 Rdktb-9-mdozuoibpli deficiency PTSD (post-traumatic stress disorder) Anxiety Tachycardia Hyperreflexia Scoliosis IBS (irritable bowel syndrome) Rhinitis Cervicalgia Myofascial pain syndrome Fibromyalgia Dyspnea Autism Depression Seizure Aspergers' syndrome Hypothyroidism GERD (gastroesophageal reflux disease) Asthma Arthritis Tourette syndrome Social History Alcohol intake: never Patient Tobacco Use Status: Never used Tobacco Review of Systems Const All systems reviewed & are unremarkable except as noted in HPI and below Physical Exam Vital Signs: Last Vital Signs Pulse 81 01/15/24 12:39 Resp 16 01/15/24 12:39 BP 116/78 01/15/24 12:39 Pulse Ox 96 01/15/24 12:39 Oxygen Delivery Method Room Air 01/15/24 12:39 BMI result Body Mass Index 29.1 Const General: no acute distress Orientation/consciousness: patient oriented x3 HEENT Other: Mallampati stage Resp Effort & Inspection: normal respiratory effort and able to speak in complete sentences Auscultation: clear to auscultation bilaterally Cardio Rate: regular rate Rhythm: regular rhythm Neuro General: patient oriented x3 Psych Mental Status: mental status grossly normal Speech and movement: Clear speech present Attitude: cooperative Results Reviewed Results Reviewed: PAP compliance report- see HPI Assessment & Plan Assessment & Plan (1) Nocturnal hypoxemia: Code(s): G47.34 - Idiopathic sleep related nonobstructive alveolar hypoventilation Category: Medical (2) Snoring: Code(s): R06.83 - Snoring Category: Medical (3) Sleep difficulties: Code(s): G47.9 - Sleep disorder, unspecified Category: Medical (4) Periodic limb movement: Comment: Leg spasm, periodic limb movements startle response Code(s): G47.61 - Periodic limb movement disorder Category: Medical Plan Reviewed HST- inconclusive w/ AHI < 2/hr and no hypopneas, however average SpO2 was 91% and SpO2 was under 90% x's 79 min. Pt is again advised to undergo in-lab PSG to assess status of sleep apnea, nocturnal hypoxemia. Pt should opt for the latest sleep study appt possible d/t delayed sleep phase. In the meantime, continue CPAP 7 cmH2O w/ EPR 3 nightly > 4 hrs. Will reach out to [facility]- to reconnect pt to [employer] account. Continue incentive spirometer. Follow-up w/ pulmonary and thoracic sx as scheduled. For PLMS: Patient previously stopped Gabapentin. Review PLMS status on f/u in-lab PSG. Pt currently on Diazepam 5mg qhs. For cognitive s/s upon awakening: Discussed this may be multifactorial- possibly effects of sleep inertia, polypharmacy. Reviewed sleep hygiene information- including typical adult sleep need is 7-9hrs. Shared sleep hygiene resources w/ pt. Will review sleep onset/sleep quality/sleep stages data from upcoming in-lab PSG. Future considerations- speaking w/ psychiatric provider regarding possibly trying gradual dose reduction. Monitor tics. f/u in 6 months or sooner prn Coding Level of Care Code Est Pt Level 4 (04959) Diagnoses Nocturnal hypoxemia G47.34 Snoring R06.83 Sleep difficulties G47.9 Periodic limb movement G47.61
[2024-01-15 12:39] VITALS: BP 116/78; PULSE 81; RESP 16; O2SAT 96; BMI 29.1
== END 2024-01-15 13:31 | disposition home or self-care (01) ==
PROVIDERS: PCP Internal Medicine; Visit Provider Nurse Practitioner Family
DX: G47.34 Idiopathic sleep related nonobstructive alveolar hypoventilation (principal); R06.83 Snoring; G47.9 Sleep disorder, unspecified; G47.61 Periodic limb movement disorder
CPT/HCPCS: 99214

== ENCOUNTER → 2024-01-15 12:22 | Outpatient (BNVA) | payer OTHER, SELFPAY | PROVIDERS: PCP Internal Medicine; Visit Provider Nurse Practitioner Family | DX: G47.34 Idiopathic sleep related nonobstructive alveolar hypoventilation (principal); R06.83 Snoring; G47.61 Periodic limb movement disorder | CPT/HCPCS: 99212 ==

== ENCOUNTER 2024-03-01 14:52 | Outpatient (AMB) | payer OTHER, SELFPAY ==
--- NOTE | 2024-03-01 15:16 | A.OFFVIS_ITS ---
Vital Signs 03/01/24 15:18 Height 5 ft 8 in Weight 187 lb 6.287 oz BMI 28.5 BP 124/70 Blood Pressure Location Rt brachial Position Sitting Pulse 79 Pulse Source Pulse Oximeter Pulse Oximetry (%) 95 Oxygen Delivery Method Room Air Intake Visit Reasons: copd Network Coordinator Required: No Allergies ascorbic acid [From Airborne (ascorbate sodium)] Allergy (Mild, Verified 03/01/24 15:21) Unknown glutamine [From Airborne (ascorbate sodium)] Allergy (Mild, Verified 03/01/24 15:21) Unknown herbal complex no.124 [From Airborne (ascorbate sodium)] Allergy (Mild, Verified 03/01/24 15:21) Unknown Latex, Natural Rubber Allergy (Mild, Verified 03/01/24 15:21) Unknown lysine HCl [From Airborne (ascorbate sodium)] Allergy (Mild, Verified 03/01/24 15:21) Unknown multivitamin with minerals [From Airborne (ascorbate sodium)] Allergy (Mild, Verified 03/01/24 15:21) Unknown perfume Allergy (Mild, Verified 03/01/24 15:21) Unknown risperidone [From Risperdal] Allergy (Mild, Verified 03/01/24 15:21) Unknown Sulfa (Sulfonamide Antibiotics) Allergy (Mild, Verified 03/01/24 15:21) unknown chemical based products Allergy (Mild, Uncoded 03/01/24 15:21) Unknown cleaning products Allergy (Mild, Uncoded 03/01/24 15:21) Unknown cologna Allergy (Mild, Uncoded 03/01/24 15:21) Unknown tennex Allergy (Mild, Uncoded 03/01/24 15:21) Unknown HPI Comments Details: The patient is a 33-year-old gentleman with a known history of asthma in addition to underlying allergies. The patient also has a diagnosis of sleep apnea and has been on CPAP. Apparently while he was evaluated by Pulmonary in the past he had a abnormal alpha-1 antitrypsin study. The family is not way of any genotype or levels. Apparently the abnormal allele came from the dad. He is not clear if the mom has an abnormal early 0. Will have to redo the genotype at this time. Also check his alpha-1 levels. In the meantime the patient has been on Trelegy inhaler with good effect. He has not had to use his rescue inhaler. Typically less than twice a week. Has not required prednisone. He has not had allergy testing many years. Will go ahead and recheck his allergy testing and also his alpha-1 levels. The patient seems to be stable on his current therapy. Will have him come back with pulmonary function studies. Patient also continues uses CPAP. He has been followed closely by Neurology. The CPAP therapy appears to be affecting beneficial. He does use it for more than 4 hours a night. He does use a nasal mask any does get a very dry mouth. Explained to him this can result in poor disease of the gingiva and 2 DKA. Therefore, the patient will start using a chinstrap. I will request from from his [facility], and regional. 01/31/2023 The patient is here for pulmonary follow-up visit. Overall the patient still about the same. Complaining of dyspnea on exertion. Specially going up a flight of stairs. We did go for brief walking oximetry today and the patient and maintain a pulse ox of 96%. Although, became tachycardic to about 115 when going up flight of stairs. We also reviewed his pulmonary function studies. He does have a severe obstruction which is concerning. He did have a chest x-ray back in July without any significant diagnostic information. Based on his severe obstruction on his PFTs and his ongoing symptoms of dyspnea on maximum respiratory therapy I will go ahead and request a CT scan of the chest with inspiratory and expiratory cuts to better address the obstructive phy siology. In addition we did discuss the off 1 testing. He had a suspicion of alpha-1 antitrypsin deficiency. However, his genotype came back normal, mm. His levels are also within normal limits. 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 therefore, the patient does not have a 1-2% efficiency which is good for him will continue with current respiratory therapy. The patient will increase his exercise activity. Did give information about online pulmonary rehab specially since he lives further out otherwise he can consider an in person just has to call the office and will put a request. Otherwise the patient will return in 3- 4 months to review his CT scan of the chest. 08/04/2023 the patient is here for pulmonary follow-up visit. The patient is feeling a lot better after his surgery. had been complaining of back pain and neck pain and this discomfort over that area and his symptoms have subsided after the surgical intervention. The patient tolerated procedure well. In the meantime he has been monitor closely by Neurology regarding the underlying sleep apnea. The patient has been on CPAP. The CPAP therapy has been affecting beneficial. He does use it for more than 4 hours a night. Again he will continue to work with Neurology for further adjustments. His mother was wondering about a sleep study in the hospital to further address sleep apnea. I did encourage them to seek out further recommendations from Neurology. The patient initially was sent over to have assessment of alpha-1 antitrypsin defi ciency. His genotype was normal. His alpha-1 levels were within normal. At this point is on a reasonable to check the alpha-1 levels 1 more time to make sure that continued to be stable. Will plan to have repeat blood work next year. In regards of imaging studies. The patient should have a repeat CT scan To make sure there is no recurrence. 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 03/01/2024 the patient is here for a pulmonary follow-up visit. Overall the patient has been doing well. Recovered well from surgery. The patient has continue to follow-up with thoracic surgery at [facility] and will continue getting serial imaging studies there. In the meantime he has recovered from surgery. No significant pain at the site. He has been using the CPAP. CPAP therapy continues to be affecting beneficial. He does use it for more than 4 hours a night. [facility] Medical History (Updated 10/24/23 @ 13:15 by EDUARDO Perry) ILD (interstitial lung disease) Pulmonary nodule Schwannoma of nerve of chest Asthma-COPD overlap syndrome Dodup-8-cbmvsrhueqk deficiency PTSD (post-traumatic stress disorder) Anxiety Tachycardia Hyperreflexia Scoliosis IBS (irritable bowel syndrome) Rhinitis Cervicalgia Myofascial pain syndrome Fibromyalgia Dyspnea Autism Depression Seizure Aspergers' syndrome Hypothyroidism GERD (gastroesophageal reflux disease) Asthma Arthritis Tourette syndrome Social History Alcohol intake: never Patient Tobacco Use Status: Never used Tobacco Review of Systems Const Denies fever(s) Eyes Denies change in vision ENT Denies change in voice and Reports nasal congestion Card Denies chest pain, Reports palpitations and Reports dyspnea on exertion Resp Reports cough, Reports dyspnea on exertion and Reports wheezing GI Reports no additional complaints Musc Reports no additional complaints Skin/Breast Denies rash Neuro Reports no additional complaints Endo Reports palpitations Abran/Lymph Denies lymphadenopathy Aller/Immun Reports wheezing Physical Exam Vital Signs: Last Vital Signs Pulse 79 03/01/24 15:18 BP 124/70 03/01/24 15:18 Pulse Ox 95 03/01/24 15:18 Oxygen Delivery Method Room Air 03/01/24 15:18 BMI result Body Mass Index 28.5 Const General: comfortable HEENT Head: Yes atraumatic Neck Neck: Yes supple Chest Chest palpation & inspection: normal inspection of the chest Resp Effort & Inspection: normal respiratory effort Auscultation: no wheezes and diminished lung sounds Cardio Rate: regular rate Rhythm: regular rhythm Heart sounds: S1 normal heart sound present and S2 normal heart sound present GI Palpation (GI): Soft to palpation Skin General skin exam: no rashes or lesions noted Extrem General: Yes no clubbing, cyanosis or edema Assessment & Plan Assessment & Plan (1) Asthma: Code(s): J45.909 - Unspecified asthma, uncomplicated Category: Medical Qualifiers: Asthma complication type: uncomplicated Asthma persistence: persistent Asthma severity: moderate Qualified Code(s): J45.40 - Moderate persistent asthma, uncomplicated (2) Kzzxn-9-hnmmjvkvdmg deficiency: Comment: No evidence of alpha 1 anti trypsin deficiency, genotype MM with normal levels Code(s): E88.01 - Zkamc-6-oicnlincdks deficiency Category: Medical (3) Obstructive sleep apnea (adult) (pediatric): Comment: Baseline ahi 19/hr Supine 76/hr O2 paty 85 %. Code(s): G47.33 - Obstructive sleep apnea (adult) (pediatric) Category: Medical (4) Nocturnal hypoxemia: Code(s): G47.34 - Idiopathic sleep related nonobstructive alveolar hypoventilation Category: Medical (5) Sleep difficulties: Code(s): G47.9 - Sleep disorder, unspecified Category: Medical (6) Periodic limb movement: Comment: Leg spasm, periodic limb movements startle response Code(s): G47.61 - Periodic limb movement disorder Category: Medical (7) ILD (interstitial lung disease): Comment: DIP changes on lung parenchyma, which are smoking related lung changes Code(s): J84.9 - Interstitial pulmonary disease, unspecified Category: Medical Plan Continue Trelegy MARCE as needed continue singulair continue anti histamine therapy continue APAP as per neurology, Kalyani 1 genotype and levels are all normal, will check the alpha levels one more time to make sure the levels stay normal CT chest serial CT chest per thoracic surgery smoking exposure with ILD changes on path report. Needs to avoid second hand smoke F/U 12 months Coding Level of Care Code Est Pt Level 4 (96107) Diagnoses Moderate persistent asthma without complication J45.40 Asthma complication type: uncomplicated Asthma persistence: persistent Asthma severity: moderate Vptrl-5-dysjuotrvto deficiency E88.01 Obstructive sleep apnea (adult) (pediatric) G47.33 Nocturnal hypoxemia G47.34 Sleep difficulties G47.9 Periodic limb movement G47.61 ILD (interstitial lung disease) J84.9 Time Spent (min) 16
[2024-03-01 15:18] VITALS: BP 124/70; PULSE 79; O2SAT 95; BMI 28.5
== END 2024-03-01 15:46 | disposition home or self-care (01) ==
PROVIDERS: PCP Internal Medicine; Visit Provider Hospitalist
DX: J45.40 Moderate persistent asthma, uncomplicated (principal); E88.01 Alpha-1-antitrypsin deficiency; G47.33 Obstructive sleep apnea (adult) (pediatric); G47.34 Idiopathic sleep related nonobstructive alveolar hypoventilation; G47.9 Sleep disorder, unspecified; G47.61 Periodic limb movement disorder; J84.9 Interstitial pulmonary disease, unspecified
CPT/HCPCS: 99214

== ENCOUNTER → 2024-03-01 14:52 | Outpatient (BNVA) | payer OTHER, SELFPAY | PROVIDERS: PCP Internal Medicine; Visit Provider Hospitalist | DX: J45.40 Moderate persistent asthma, uncomplicated (principal); J84.9 Interstitial pulmonary disease, unspecified; G47.33 Obstructive sleep apnea (adult) (pediatric); G47.34 Idiopathic sleep related nonobstructive alveolar hypoventilation; G47.9 Sleep disorder, unspecified; G47.61 Periodic limb movement disorder; E88.01 Alpha-1-antitrypsin deficiency | CPT/HCPCS: 99212 ==

== ENCOUNTER 2024-08-01 12:56 | Outpatient (AMB) | payer OTHER, SELFPAY ==
--- NOTE | 2024-08-01 12:52 | A.OFFVIS_ITS ---
Vital Signs 08/01/24 12:52 Weight 193 lb Intake Visit Reasons: 6 month F/U/address back pain # [phone] Allergies ascorbic acid [From Airborne (ascorbate sodium)] Allergy (Mild, Verified 08/01/24 12:59) Unknown glutamine [From Airborne (ascorbate sodium)] Allergy (Mild, Verified 08/01/24 12:59) Unknown herbal complex no.124 [From Airborne (ascorbate sodium)] Allergy (Mild, Verified 08/01/24 12:59) Unknown Latex, Natural Rubber Allergy (Mild, Verified 08/01/24 12:59) Unknown lysine HCl [From Airborne (ascorbate sodium)] Allergy (Mild, Verified 08/01/24 12:59) Unknown multivitamin with minerals [From Airborne (ascorbate sodium)] Allergy (Mild, Verified 08/01/24 12:59) Unknown perfume Allergy (Mild, Verified 08/01/24 12:59) Unknown risperidone [From Risperdal] Allergy (Mild, Verified 08/01/24 12:59) Unknown Sulfa (Sulfonamide Antibiotics) Allergy (Mild, Verified 08/01/24 12:59) unknown chemical based products Allergy (Mild, Uncoded 03/01/24 15:21) Unknown cleaning products Allergy (Mild, Uncoded 03/01/24 15:21) Unknown cologna Allergy (Mild, Uncoded 03/01/24 15:21) Unknown tennex Allergy (Mild, Uncoded 03/01/24 15:21) Unknown HPI Comments Details: 33-yr-old male presents for follow-up televisit of sleep apnea, accompanied by his mother. Pt reports he slipped and fell backwards onto his buttocks 4 days ago. Patient states he said some residual body aches and pains, maybe he bruised his pelvis. However, he is able to walk and move around at his baseline. He also reports chronic low back pain- aching nonradiating pain. He states it comes and goes throughout the day. This has not changed since his fall a few days ago. His feet and lower legs can hurt when walking- which is an aching pain, which pt attributes to walking quickly. This resolves when he starts walking slower or stops. For example, when walking to the store almost a mile away, his feet start hurting as he approaches the store. His low back starts hurting when he gets to to the store, but once he puts the groceries in his back pack (30-70lbs) his back feels better, and the feet hurt but not as bad- as he is walking slower. He states he has previously seen Podiatry, who provided him a shoe lift for limb length discrepancy. The shoe lift only fits in his sneakers, and he is using boots during the winter. He feels/shoe lift his helpful. Unfortunately, his previous hearing impaired teacher does not take his current insurance. He denies BLE swelling, skin color changes, or B&B incontinence. He notes some tingling and numbness when he sits in certain positions, but this resolves quickly upon moving. States he is sleeping ok. Tries to go to bed at 3am and tries to wake up at 1pm. He falls asleep between 3-4am. He may wake up a few times before he fully gets out of bed. His CPAP compliance report, shows very infrequent use for a very short period of time. The residual AHI is 22.6/hour, comprised of central and obstructive events (11/hour and 9.2/hour respectively). He did undergo in-lab PSG on 03/12/2024, in which sleep was recorded for 23.5 minutes which did reveal snoring and central sleep apneas with an AHI of 36/hour- however the study is nondiagnostic due to short sleep time. 01/15/2024, HPI: Pt underwent HST which did not show evidence for obstructive sleep apnea dx. HST showed AHI 1.7/h (apneas 1.7/hr, hypopneas 0/hr), O2 paty 86% (SpO2 < 90% x's 79.8 min and < 88% x's 3.2min), average SpO2 91%. Thus, pt was advised to undergo in-lab sleep study. Unfortunately, pt became anxious prior to be able to complete the in-lab sleep study, and the sleep study was not initiated. Pt states the anxiety was triggered by the sleep attendant trying to develop a plan to ensure the patient would sleep > 5 hours and repeatedly reviewing the sleep study protocol. Pt is interested in repeating the sleep study, if he can do this at another location. He states he is still using his APAP machine- however I cannot access his [employer]med [employer]view compliance data today. Pt states he has always been a shallow breather. He does have asthma, ILD dx's. Pt's mother notes that pt is doing his pulmonary exercises- using an incentive spirometer and doing better with this. Pt continues to be followed by pulmonology and has upcoming thoracic surgery f/u. Pt's mother asks if pt's medications could be contributing to cognitive difficulties in the morning. Pt does take diazepam and quetiapine qhs- pt states around 3-4am when he plans to go to sleep. Mother states he cannot sleep without the medications- but wonders if the quetiapine dose could be reduced some. His usual wake-up time is in early afternoon, can be 3pm. He endorses feeling cognitively slow upon awakening which takes a while to clear. [facility] Medical History (Updated 08/01/24 @ 13:38 by EDUARDO Perry) ILD (interstitial lung disease) Pulmonary nodule Schwannoma of nerve of chest Asthma-COPD overlap syndrome Piyrh-2-jlxbjukqnqa deficiency PTSD (post-traumatic stress disorder) Anxiety Tachycardia Hyperreflexia Scoliosis IBS (irritable bowel syndrome) Rhinitis Cervicalgia Myofascial pain syndrome Fibromyalgia Dyspnea Autism Depression Seizure Aspergers' syndrome Hypothyroidism GERD (gastroesophageal reflux disease) Asthma Arthritis Tourette syndrome Social History Alcohol intake: never Patient Tobacco Use Status: Never used Tobacco Physical Exam Const General: no acute distress Orientation/consciousness: patient oriented x3 Resp Effort & Inspection: normal respiratory effort and able to speak in complete sentences Auscultation: clear to auscultation bilaterally Neuro General: patient oriented x3 Psych Mental Status: mental status grossly normal Speech and movement: Clear speech present Attitude: cooperative Telehealth Telehealth Telehealth Platform: [facility] Location of provider rendering services: practice address Location of patient: address on file Patient Identification confirmed using: Name, : Yes Telehealth method: video Patient verbally consented to treatment: Yes Patient verbally consented to billing insurance company: Yes Patient informed of any privacy concerns related to visit: Yes Minutes spent on Phone/Video with Pt.: 22 Assessment & Plan Assessment & Plan (1) Low back pain: Code(s): M54.50 - Low back pain, unspecified Category: Medical (2) Nocturnal hypoxemia: Code(s): G47.34 - Idiopathic sleep related nonobstructive alveolar hypoventilation Category: Medical (3) Snoring: Code(s): R06.83 - Snoring Category: Medical (4) Sleep difficulties: Code(s): G47.9 - Sleep disorder, unspecified Category: Medical (5) Periodic limb movement: Comment: Leg spasm, periodic limb movements startle response Code(s): G47.61 - Periodic limb movement disorder Category: Medical Plan For low back pain, limb length discrepancy: XR lumbar with bending Advised patient to check with his insurance plan, to see which hearing impaired teacher is in network, once we know, we can make a referral to request new shoe lift. Patient is not interested in trying medication for his back pain at this time. Future consideration: PT For history of DYLAN, sleep difficulties, and symptoms of sleep inertia: Continue CPAP 7 cmH2O w/ EPR 3 nightly > 4 hrs. Continue to try to optimize sleep hygiene, such as maintain a consistent bedtime and wake schedule. Follow-up w/ pulmonary and thoracic sx as scheduled. Future considerations: Repeating in-lab sleep study requesting a late phase sleep study, possibly with PAP titration. For PLMS: Patient previously stopped Gabapentin. Pt currently on Diazepam 5mg qhs- prescribed by outside provider For tics: We will monitor clinically. f/u in 6 months or sooner prn Orders: Orders XR lumbar spine 6V w bending 08/01/24 M54.50 - Low back pain, unspecified Coding Level of Care Code Tele Est Pt Level 4 (13916) Diagnoses Low back pain M54.50 Nocturnal hypoxemia G47.34 Snoring R06.83 Sleep difficulties G47.9 Periodic limb movement G47.61
--- OUTSIDE RECORDS SUMMARY | 2024-08-01 13:51 | XMS_ITS | Encounter Summary ---
Author Organization [facility] Address [address] [place] [address] Phone Care Team Providers Care Ink Technician Name Role Phone Unavailable Primary Care Provider Unavailabl e Encounter Details Date Type Department Care Team (Late st Contact Info) Description 01/26/2017 Conversion Encounter [facility] - [address] [address] Social History Tobacco Use Types Packs/Day Years Used Date Smoking Tobacco: Never Assessed Sex and Gender Information Value Date Recorded Sex Assigned at Not on file Legal Sex Male 4:42 PM EDT Gender Identity Not on file Sexual Orientation Not on file documented as of this encounter Plan of Treatment Not on file documented as of this encounter Visit Diagnoses Not on filedocumented in this encounter
--- OUTSIDE RECORDS SUMMARY | 2024-08-01 13:51 | XMS_ITS | Encounter Summary ---
Author Organization [facility] Address [address] [place] [address] Care Team Providers Care Hoop Coiler Name Role Phone RichardViral Primary Care Provider [phone] Reason for Visit * Reason Comments Follow-up Med check [email or web address] Encounter Details Date Type Department Care Team ([facility] st Contact Info) Description 07/02/2024 9:40 AM EST Office Visit Gastroenterology - [address] [facility] [address] [place] [address] [phone] Kathy Chacko, FREDDY [address] [facility] [address] [place] [phone] Irritable bowel syndrome with constipation (Primary Dx); Gastroesophageal reflux disease, unspecified whether esophagitis present Social History Tobacco Use Types Packs/Day Years Used Date Smoking Tobacco: Never Smokeless Tobacco: Never Alcohol Use Standard Drinks/Week Comments Never 0 (1 standard drink = 0.6 oz pur e alcohol) Sex and Gender Information Value Date Recorded Sex Assigned at Not on file Legal Sex Male 8:09 PM EST Gender Identity Not on file Sexual Orientation Not on file documented as of this encounter Last Filed Vital Signs Vital Sign Reading Time Taken Comments Blood Pressure - - Pulse - - Temperature - - Respiratory Rate - - Oxygen Saturation - - Inhaled Oxygen Concentration - - Weight 89.8 kg (198 lb) 07/02/2024 9:24 AM EST Height 172.7 cm (5' 8 ) 07/02/2024 9:24 AM EST Body Mass Index 30.11 07/02/2024 9:24 AM EST documented in this encounter Ordered Prescriptions Prescription Sig Dispense Quantity Refills Last Filled Start Date End Date pantoprazole (PROTONIX) 40 mg EC tabletIndications: Irritable bowel syndrome with constipation,Gastr oesophageal reflux disease, unspecified whether esophagitis present Take 1 tablet (40 mg total) by mouth 1 (one) time each day before breakfast. Do not crush, chew, or split. 90 each 3 07/02/2024 6 linaCLOtide (Linzess) 72 mcg capsuleIndications :Irritable bowel syndrome with constipation,Gastr oesophageal reflux disease, unspecified whether esophagitis present Take 1 capsule (72 mcg total) by mouth 1 (one) time each day before breakfast. 90 each 3 07/02/2024 6 documented in this encounter Progress Notes * Kathy Chacko, FIRE BOAT ENGINEER - 07/02/2024 9:40 AM EST CHIEF COMPLAINT: Yearly follow up IBS-C and GERD DATE OF LAST ENDOSCOPIC PROCEDURES: HPI: Marshall Coley is a 33 y.o. old male who was originally referred to us by Viral Ramos, DO now presents to the gastroenterology department today for yearly follow up. Mr. Coley has a history ofconstipation for which he is now taking low dose Linzess every other day and tells me his bowels are moving well daily. He denies rectal bleeding, abdominal pain or weight loss. He is taking Pantoprazole daily and states his acid reflux is well controlled. I will refill his medications and see him in one year unless he needs us sooner. ROS: GENERAL: No malaise, significant weight loss or fever HEENT: No changes in hearing or vision or swallowing problems RESPIRATORY: No cough, wheezing or shortness of breath CARDIOVASCULAR: No chest pain, leg swelling or palpitations GI: See H&P The remainder of the review of systems is reviewed and negative. 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 deficiency (HCC) Anxiety disorder DX:Anxiety disorder Asperger's syndrome DX:Asperger's syndrome Asthma 08/14/2020 DX:Asthma Autism DX:Autism Cervicalgia DX:Cervicalgia COPD (chronic obstructive pulmonary disease) (CMS/HCC) DX:COPD (chronic obstructive pulmonary disease) (HCC) Depression DX:Depression Dyspnea DX:Dyspnea Dyspnea DX:Dyspnea Fibromyalgia DX:Fibromyalgia GERD (gastroesophageal reflux disease) DX:GERD (gastroesophageal reflux disease) Hyperreflexia DX:Hyperreflexia Hypothyroidism DX:Hypothyroidism IBS (irritable bowel syndrome) DX:IBS (irritable bowel syndrome) Insomnia 08/14/2020 DX:Insomnia Mediastinal mass 03/20/2023 DX:Mediastinal mass Mild intermittent asthma, uncomplicated DX:Mild intermittent asthma, uncomplicated Myofascial pain syndrome DX:Myofascial pain syndrome 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 Razo on 05/15/2023. PTSD (post-traumatic stress disorder) DX:PTSD (post-traumatic stress disorder) Rheumatoid arthritis (CMS/HCC) DX:Rheumatoid arthritis (HCC) Scoliosis DX:Scoliosis Seizure (CMS/HCC) DX:Seizure (HCC) Seizure (CMS/HCC) DX:Seizure (HCC) Social anxiety disorder 08/14/2020 DX:Social anxiety disorder Supraventricular tachycardia (CMS/HCC) DX:Supraventricular tachycardia (HCC) Tourette syndrome DX:Tourette syndrome PAST SURGICAL HISTORY: Past Surgical History: Procedure Laterality Date OTHER SURGICAL HISTORY Right 05/15/2023 PROCEDURE: IA THORACOSCOPY W/THERA WEDGE RESEXN INITIAL UNILAT; COMMENT: RLL wedge SOCIAL HISTORY: Social History Tobacco Use Smoking status: Never Smokeless tobacco: Never Substance Use Topics Alcohol use: Never FAMILY HISTORY: No family history on file. ACTIVE MEDICATIONS: Current Outpatient Medications Medication Sig Dispense Refill ASCORBIC ACID, VITAMIN C, ORAL Take 60 mg by mouth. CHOLECALCIFEROL, VITAMIN D3, ORAL Take 10,000 Units by mouth. diazePAM (VALIUM) 5 mg tablet Take 5 mg by mouth every 8 hours as needed. FOLIC ACID ORAL Take 2 mg by mouth. levothyroxine (SYNTHROID, LEVOTHROID) 88 mcg tablet Take 88 mcg by mouth daily. linaCLOtide (Linzess) 72 mcg capsule Take by mouth. pantoprazole (PROTONIX) 40 mg EC tablet Take 40 mg by mouth daily. QUEtiapine (SEROquel) 100 mg tablet Take 100 mg by mouth 2 times daily. sertraline HCl (ZOLOFT ORAL) Take 100 mg by mouth. vitamin A 2,400 mcg capsule Take by mouth daily. fexofenadine (DENNIS) 180 mg tablet Take 1 Tablet by mouth daily. (Patient not taking: Reported on07/02/2024) shncqssblpt-gvktoyrfunvk-ouijydbycp (Trelegy Ellipta) 100-62.5-25 mcg inhaler Inhale into the lungs. montelukast (SINGULAIR) 10 mg tablet Take 10 mg by mouth at bedtime. (Patient not taking: Reported on 07/02/2024) pimecrolimus (Elidel) 1 % cream APPLY TO AFFECTED AREA TWICE DAILY (FACE AND EARS) (Patient not taking: Reported on 07/02/2024) No current facility-administered medications for this visit. ALLERGIES: Allergies Allergen Reactions Ascorbic Acid Bisacodyl Fluticasone Propion-Salmeterol Glutamine Plus Antioxidant Guanfacine Latex Lysine Risperidone Sulfa (Sulfonamide Antibiotics) PHYSICAL EXAM: Visit Vitals Ht 1.727 m (68 ) Wt 89.8 kg (198 lb) BMI 30.11 kg/m?? Smoking Status Never BSA 2.03 m?? APPEARANCE: Alert and in no acute distress EYES: PERRLA, conjunctiva and sclera normal. HEART: RRR with normal S1 and S2, no murmurs appreciated LUNG: clear to auscultation ABDOMEN: nontender without masses NEURO: Awake, alert and oriented x 3 Assessment & Plan Irritable bowel syndrome with constipation Refilled Linzess 72 ucg for 1 year Orders: linaCLOtide (Linzess) 72 mcg capsule; Take 1 capsule (72 mcg total) by mouth 1 (one) time each day before breakfast. pantoprazole (PROTONIX) 40 mg EC tablet; Take 1 tablet (40 mg total) by mouth 1 (one) time each daybefore breakfast. Do not crush, chew, or split. Gastroesophageal reflux disease, unspecified whether esophagitis present Refilled Pantoprazole 40mg for 1 year Orders: linaCLOtide (Linzess) 72 mcg capsule; Take 1 capsule (72 mcg total) by mouth 1 (one) time each day before breakfast. pantoprazole (PROTONIX) 40 mg EC tablet; Take 1 tablet (40 mg total) by mouth 1 (one) time each daybefore breakfast. Do not crush, chew, or split. I would like to thank Viral Ramos DO for the opportunity to partake in the patient's care. Board Certified Gastroenterology [facility] W [phone] [address] [facility]. [address] [place] [phone] [email or web address] Kathy hCacko NP documented in this encounter Plan of Treatment Upcoming Encounters Date Type Department Care Team (Late st Contact Info) Description 10/07/2024 5:15 PM EDT Appointment [facility] Scan [address] [place] [phone] documented as of this encounter Visit Diagnoses Diagnosis Irritable bowel syndrome with constipation- Primary Irritable bowel syndrome Gastroesophageal reflux disease, unspecified whether esophagitis present documented in this encounter Discontinued Medications Medication Sig Discontinue Reason Start Date End Da te linaCLOtide (Linzess) 72 mcg capsule Take by mouth. Reorder 07/02/2024 pantoprazole (PROTONIX) 40 mg EC tablet Take 40 mg by mouth daily. Reorder 07/02/2024 documented as of this encounter Care Teams Hoop Coiler Relationship Specialty Start Date End Date Viral Ramos DO [address] [place] [phone] PCP - General Internal Medicine 08/25/20 documented as of this encounter
--- OUTSIDE RECORDS SUMMARY | 2024-08-01 13:51 | XMS_ITS | Encounter Summary ---
Author Organization [facility] Address [address] [place] [phone] Phone Care Team Providers Care Backbreaker Name Role Phone Unavailable Primary Care Provider Unavailabl e Encounter Details Date Type Department Care Team (Late st Contact Info) Description 05/24/2012 Documentation [facility] [place] Family Medicine [facility] [place] [address] Family Medicine, Physician [address] [place], [place] [phone] Social History Tobacco Use Types Packs/Day Years [...]
--- OUTSIDE RECORDS SUMMARY | 2024-08-01 13:51 | XMS_ITS | Clinical Summary ---
Author Organization [facility] Address [address] [place] [phone] Phone Care Team Providers Care Casing In Line Feeder Name Role Phone Unavailable Primary Care Provider Unavailabl e Immunizations Immunization Administration Dates Next Due DTP 11/11/1994, 1,03/12/1990,01/03,1989 Hep B, ped/adol 07/13/2001,02/13/2001,01/02/2001 Hib (PRP-T) 02/10/1991,09/10/1990,06/12/1990 MMR 11/11/1994,03/11/1991 Meningococcal Conj (Menactra) MCV4P 11/27/2006 OPV 11/11/1994, 1,03/12/1990,01/03,1989 Pneumococcal Polysaccharide 02/13/2001 Td (adult) (MBL), 2 Lf tetan us toxoid, PF, adsorbed 01/02/2001 Tdap 02/19/2008 Family History Relation Name Status Comments Father Father: Bipolar disorder Mother Alive Mother: anemia, low BP,scoliosis,migraines,arrythmia Other Family history of Sudden /NM under age 55, No family history of Deafness, Family history of Asthma, Family history of Elevated cholesterol, Family history of Migraines, Family history of Diabetes mellitus Social History Tobacco Use Types Packs/Day Years Used Date Smoking Tobacco: Never Assessed Sex and Gender Information Value Date Recorded Sex Assigned at Not on file Legal Sex Male 4:42 PM EDT Gender Identity Not on file Sexual Orientation Not on file Plan of Treatment Health Maintenance Due Date Last Done Comments Varicella Vaccines (1 of 2 - 13+ 2-dose series) 2002 DTaP,Tdap,and Td Vaccines (7 - Td or Tdap) 02/18/2018 02/19/2008, 01/02/2001, 11/11/1994, Additional history exists Influenza Vaccines (#1) 2024 COVID-19 Vaccine (2023- season) 2024 HIB Vaccines Completed 02/10/1991, 06/1990, 06/12/1990 IPV Vaccines Completed 11/11/1994, 02/12, 03/12/1990, Additional history exists MMR Vaccines Completed 11/11/1994, 03/11/1991 Pneumococcal Vaccine Aged Out 02/13/2001 No long er eligible based on patient's age to complete this topic Hepatitis B Vaccines Completed 07/13/2001, 02/13/2001, 01/02/2001 Meningococcal Vaccine Completed 11/27/2006 HPV Vaccines Aged Out No longer eligi ble based on patient's age to complete this topic Hepatitis A Vaccines Aged Out No long er eligible based on patient's age to complete this topic Men B Vaccine Aged Out No longer elig ible based on patient's age to complete this topic
--- OUTSIDE RECORDS SUMMARY | 2024-08-01 13:51 | XMS_ITS | Clinical Summary ---
Author Organization [address] [facility] Address [address] [place] [address] Phone Care Team Providers Care Public Relations Supervisor Name Role Phone Richard Viralpia GEORGE Primary Care Provider [phone] Allergies Active Allergy Reactions Criticality Noted Date Comments Ascorbic Acid 03/15/2023 Bisacodyl 03/15/2023 Fluticasone Propion-Salmeterol 08/08 Glutamine Plus Antioxidant Guanfacine 08/10/2020 Latex 03/15/2023 Lysine 03/15/2023 Risperidone 08/10/2020 Sulfa (Sulfonamide Antibiotics) 06/2020 Medications ASCORBIC ACID, VITAMIN C, ORAL Take 60 mg by mouth. Active vitamin A 2,400 mcg capsule Take by mouth daily. Active FOLIC ACID ORAL Take 2 mg by mouth. Active sertraline HCl (ZOLOFT ORAL) Take 100 mg by mouth. Active CHOLECALCIFEROL, VITAMIN D3, ORAL Take 10,000 Units by mouth. Active diazePAM (VALIUM) 5 mg tablet Take 5 mg by mouth every 8 hours as needed. Active fexofenadine (DENNIS) 180 mg tablet Take 1 Tablet by mouth daily. Active fluticasone-umec lidinium-vilante rol (Trelegy Ellipta) 100-62.5-25 mcg inhaler Inhale into the lungs. Active levothyroxine (SYNTHROID, LEVOTHROID) 88 mcg tablet Take 88 mcg by mouth daily. Active montelukast (SINGULAIR) 10 mg tablet Take 10 mg by mouth at bedtime. Active pimecrolimus (Elidel) 1 % cream APPLY TO AFFECTED AREA TWICE DAILY (FACE AND EARS) 1 Active QUEtiapine (SEROquel) 100 mg tablet Take 100 mg by mouth 2 times daily. Active linaCLOtide (Linzess) 72 mcg capsuleIndicatio ns:Irritable bowel syndrome with constipation,Gas troesophageal reflux disease, unspecified whether esophagitis present Take 1 capsule (72 mcg total) by mouth 1 (one) time each day before breakfast. 90 each 3 5 07/02/19 26 Active pantoprazole (PROTONIX) 40 mg EC tabletIndication s:Irritable bowel syndrome with constipation,Gas troesophageal reflux disease, unspecified whether esophagitis present Take 1 tablet (40 mg total) by mouth 1 (one) time each day before breakfast. Do not crush, chew, or split. 90 each 3 5 07/02/19 26 Active Active Problems Problem Noted Date Diagnosed Date DYLAN (obstructive sleep apnea) 03/26/2024 Overview (06/18/2024): Last Assessment & Plan: Long discussion today regarding the potential long-term negative implications of untreated sleep apnea as they relate to his cardiovascular health. The patient was encouraged to use CPAP regularly; he will continue to follow-up with his provider as recommended. Palpitations 03/26/2024 Overview (06/18/2024): Last Assessment & Plan: The patient reports a fast pounding heartbeat with any exertion; we discussed that this may be a normal response to exercise especially if the patient is not well-conditioned. To be complete, we will have the patient wear a 48-hour Holter monitor for further evaluation of potential underlying arrhythmia and readdress as needed once results are reviewed. His palpitations are not accompanied by any symptoms concerning for underlying ischemia or heart failure; subsequently we will not update any other testing at the present time. We will attempt to obtain recent lab results from his PCP office as the most recent ones we have on file are from May 2023; I am most interested in seeing his most recent TSH given his history of hypothyroidism. To seek emergent medical attention for any palpitations accompanied by such as lightheadedness or dizziness, syncope or presyncope, or or chest pain. Pulmonary nodules 12/11/2023 Neurofibroma 12/08/2023 Overview (06/18/2024): Posterior mediastinum - resected by Dr. Razo on 05/15/2023. Mediastinal mass 03/20/2023 Overview (06/18/2024): Last Assessment & Plan: Mr. Coley is a 33-year-old male who had a robotic posterior mediastinal mass resection and right lower lobe wedge x 2 in May 2023. The mediastinal mass that was resected was negative for malignancy and instead showed a benign neurofibroma. The right lower lobe wedge resection x 2 for pulmonary nodules were also negative for malignancy and instead showed a benign intraparenchymal lymph node in each specimen. ?? The patient's most recent surveillance chest CT scan performed on November 29, 2023 shows no recurrence mediastinal mass. He does have multiple pulmonary nodules the largest of which is a 5 mm nodule in the lingula. He has no mediastinal adenopathy. ?? We will continue routine surveillance for the patient's past history of mediastinal mass and his pulmonary nodules with a repeat CT chest in 1 year, November 2024. The patient will have a follow-up visit after the CT scan. Patient is told to call the office should he have any questions or concerns prior to his next appointment. PSVT (paroxysmal supraventricular tachycardia) 0 08/24/2020 Overview (06/18/2024): Last Assessment & Plan: We actually have no evidence of a supraventricular tachycardia. Only some sinus tachycardia postoperatively the night after surgery. And it was relatively mild. We talked about doing a Holter monitor. He feels he knows when his heart rate goes up and if he just rests a little bit and calms down it goes back to normal. He is not really limited by this or bothered by it. I showed him the [employer] mobile leeanna which they can get and check his rhythms if they are concerned. We can see them in the patient portal. Recommend he get a TSH checked return here if necessary. 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 I have reviewed with the patient the importance of a heart healthy lifestyle which includes eating a low-fat low-salt diet, getting regular exercise, maintaining a healthy weight, not smoking, and following up with routine medical care. Hypothyroid 08/14/2020 Impaired glucose tolerance 08/14/2020 Insomnia 08/14/2020 Social anxiety disorder 08/14/2020 Encounters Date Type Department Care Team Description 07/02/2024 9:40 AM EST Office Visit Gastroenterology - [address] [facility] [address] [place] [phone] Kathy Chacko, FREDDY Irritable bowel syndrome with constipation (Primary Dx); Gastroesophageal reflux disease, unspecified whether esophagitis present from Last 3 Months Surgical History Surgery Date Site/Laterality Comments OTHER SURGICAL HISTORY 05/15/2023 Right PROCEDURE: [facility] THORACOSCOPY W/THERA WEDGE RESEXN INITIAL UNILAT; COMMENT: RLL wedge Medical History Medical History Date Comments Vkgjb-8-mcuilkpzubv deficien cy ([facility]) DX:Vnawe-8-qbeiblrugri defic iency ([facility]) Anxiety disorder DX:Anxiety diso rder Rheumatoid arthritis ([facility]) D X:Rheumatoid arthritis ([facility]) Asperger's syndrome DX:Asperger' s syndrome Mild intermittent asthma, uncomplicated DX:Mild intermittent asthma, uncomplicated COPD (chronic obstructive pu lmonary disease) ([facility]) DX:COPD (chronic obstructive pulmonary disease) ([facility]) Autism DX:Autism Cervicalgia DX:Cervicalgia Depression DX:Depression Dyspnea DX:Dyspnea Dyspnea DX:Dyspnea Fibromyalgia DX:Fibromyalgia GERD (gastroesophageal reflux disease) DX:GERD (gastroesophageal reflux disease) Hyperreflexia DX:Hyperreflexia Hypothyroidism DX:Hypothyroidis m IBS (irritable bowel syndrome) D X:IBS (irritable bowel syndrome) Myofascial pain syndrome DX:Myof ascial pain syndrome PTSD (post-traumatic stress disorder) DX:PTSD (post-traumatic stress disorder) Allergic rhinitis due to pollen DX:Allergic rhinitis due to pollen Scoliosis DX:Scoliosis Seizure (CMS/HCC) DX:Seizure (HC C) Seizure (CMS/HCC) DX:Seizure (HC C) Supraventricular tachycardia (CMS/HCC) DX:Supraventricular tachycardia (HCC) Tourette syndrome DX:Tourette sy ndrome 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 Razo on 05/15/2023. Mediastinal mass 03/20/2023 DX:Mediastinal mass Asthma 08/14/2020 DX:Asthma Allergic rhinitis 08/14/2020 DX:Allergic rh initis Social anxiety disorder 08/14/2020 DX:Socia l anxiety disorder Insomnia 08/14/2020 DX:Insomnia Social History Tobacco Use Types Packs/Day Years Used Date Smoking Tobacco: Never Smokeless Tobacco: Never Alcohol Use Standard Drinks/Week Comments Never 0 (1 standard drink = 0.6 oz pur e alcohol) Sex and Gender Information Value Date Recorded Sex Assigned at Not on file Legal Sex Male 8:09 PM EST Gender Identity Not on file Sexual Orientation Not on file Obstetrics History Last Filed Vital Signs Vital Sign Reading Time Taken Comments Blood Pressure 120/67 03/26/2024 1:04 PM EDT Sit ting L Arm Pulse 80 03/26/2024 1:04 PM EDT Temperature - - Respiratory Rate - - Oxygen Saturation - - Inhaled Oxygen Concentration - - Weight 89.8 kg (198 lb) 07/02/2024 9:24 AM EST Height 172.7 cm (5' 8 ) 07/02/2024 9:24 AM EST Body Mass Index 30.11 07/02/2024 9:24 AM EST Plan of Treatment Upcoming Encounters Date Type Department Care Team (Late st Contact Info) Description 10/07/2024 5:15 PM EDT Appointment [facility] CT Scan [address] [place] [address] Health Maintenance Due Date Last Done Comments COVID-19 Vaccine (#1) 1994 DTaP,Tdap,and Td Vaccines (8 - Td or Tdap) 02/18/2018 02/19/2008, 01/02/2001, 11/11/1994, Additional history exists Depression Screening 05/14/2022 HIV Screening 05/14/2022 Hepatitis C Screening 05/14/2022 Social Influencers of Health Screening 05/14/2022 Influenza Vaccine (#1) 2024 03/04/2020 Cholesterol Screening (Lipid Panel) 04/24/2029 04/24/2024 Pneumococcal Vaccine: Pediatrics (0 to 5 Years) and At-Risk Patients (6 to 64 Years) (3 of 3 - PCV20 or PCV21) 09/22/2039 08/07/2017, 02/13/2001 HIB Vaccines Completed 02/10/1991, 06/1990, 06/12/1990 IPV Vaccines Completed 11/11/1994, 02/12, 03/12/1990, Additional history exists MMR Vaccines Completed 11/11/1994, 03/11/1991 Hepatitis B Vaccines Completed 07/13/2001, 02/13/2001, 01/02/2001 Meningococcal ACWY Vaccine Completed 11/27/2006 HPV Vaccines Aged Out No longer eligi ble based on patient's age to complete this topic Hepatitis A Vaccines Aged Out No long er eligible based on patient's age to complete this topic Meningococcal B Vacine Aged Out No lo nger eligible based on patient's age to complete this topic RSV Immunization Patients Under 20 months Aged Out No longer eligible based on patient's age to complete this topic Varicella Vaccines Aged Out No longer eligible based on patient's age to complete this topic Procedures Procedure Name Priority Date/Time Associated Diagnosis Comments LIPID PANEL WITH REFLEX TO DIRECT LDL Routine 04/24/2024 1:37 PM EST IGT (impaired glucose tolerance) HLD (hyperlipidemia) Hypothyroid from Last 3 Months or Most Recently Relevant to Health Maintenance Results * (ABNORMAL) Lipid panel with reflex to direct LDL (04/24/2024 1:37 PM EST) Cholesterol 186 0 - 200 mg/dL LAB CHEMISTRY METHOD 04/24/2024 4:54 PM EST [facility] Triglycerides 393(H) 0 - 150 mg/dL LAB CHEMISTRY METHOD 04/24/2024 4:54 PM EST [facility] HDL 28(L) >=40 mg/dL LAB CHEMISTRY METHOD 04/24/2024 4:54 PM EST [facility] LDL Calculated 79 0 - 100 mg/dL LAB CHEMISTRY METHOD 04/24/2024 4:54 PM EST [facility] VLDL Cholesterol Joni 78.6 mg/dL LAB CHEMISTRY METHOD 04/24/2024 4:54 PM EST [facility] Non HDL Chol. (LDL+VLDL) 158(H) <145 mg/dL LAB CHEMISTRY METHOD 04/24/2024 4:54 PM [facility] Chol/HDL Ratio 6.6(H) 0.0 - 4.4 LAB CHEMISTRY METHOD 04/24/2024 4:54 PM EST [facility] Blood Venous blood specimen / Unknown Venipuncture / Unknown 04/24/2024 1:37 PM EST 04/24/2024 1:37 PM EST Viral Ramos DO LAB BLOOD ORDERABLES Final Re sult [facility] [address] [place] [address], from Last 3 Months or Most Recently Relevant to Health Maintenance Insurance [facility] [employer] Care Teams Public Relations Supervisor Relationship Specialty Start Date End Date Viral Ramos DO [address] [place] [phone] PCP - General Internal Medicine 08/25/20
== END 2024-08-01 15:39 | disposition home or self-care (01) ==
PROVIDERS: PCP Internal Medicine; Visit Provider Nurse Practitioner Family
DX: M54.50 Low back pain, unspecified (principal); G47.34 Idiopathic sleep related nonobstructive alveolar hypoventilation; R06.83 Snoring; G47.9 Sleep disorder, unspecified; G47.61 Periodic limb movement disorder
CPT/HCPCS: 99214

== ENCOUNTER → 2024-08-01 12:56 | Outpatient (BNVA) | payer OTHER, SELFPAY | PROVIDERS: PCP Internal Medicine; Visit Provider Nurse Practitioner Family ==

== ENCOUNTER 2024-08-08 12:24 | Outpatient (REF) | payer OTHER, SELFPAY ==
--- NOTE | ~2024-08-08 | XR_ITS ---
CLINICAL HISTORY: M54.50 - Low back pain, unspecified 7 views lumbar spine Comparison: None Findings: There is mild scoliotic curvature. No acute fractures or dislocation. No significant degenerative change. IMPRESSION: No acute findings. This document has been electronically signed by: Anand Villarreal MD on 08/08/2024 19:20:02
--- OUTSIDE RECORDS SUMMARY | 2024-08-08 14:51 | XMS_ITS | Clinical Summary ---
Author Organization [facility] Address [address] [place] [phone] Phone Care Team Providers Care Tour Conductor Name Role Phone Unavailable Primary Care Provider [...] low BP,scoliosis,migraines,arrythmia Other Family history of Sudden /NC under age 55, No family history of [...]
--- OUTSIDE RECORDS SUMMARY | 2024-08-08 14:51 | XMS_ITS | Clinical Summary ---
Author Organization [facility] Address [address] [place] [address] Phone Care Team Providers Care Tracing Lathe Set Up Operator Name Role Phone Richard Viralpia GEORGE Primary Care Provider [phone] Allergies Active Allergy Reactions Criticality Noted Date [...] bothered by it. I showed him the [employer] mobile leeanna which they can get and check his rhythms if they are concerned. We can see them in the patient portal. Recommend he get a TSH checked return here if necessary. 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 Asthma 08/14/2020 Autism spectrum disorder [...] Office Visit Gastroenterology - [address] [facility] [address] [place] [phone] Kathy Chacko, FREDDY Irritable bowel syndrome with constipation (Primary Dx); Gastroesophageal reflux disease, unspecified whether esophagitis present from Last 3 Months Surgical History Surgery Date Site/Laterality Comments OTHER SURGICAL HISTORY 05/15/2023 Right PROCEDURE: [facility] W/THERA WEDGE RESEXN INITIAL UNILAT; COMMENT: RLL wedge Medical History Medical History Date Comments Tuhij-2-ubeprrwnqnt deficien cy ([facility]) DX:Nrftk-0-lfkwdiwxvri defic iency ([facility]) Anxiety disorder DX:Anxiety diso rder Rheumatoid arthritis ([facility]) D X:Rheumatoid arthritis ([facility]) Asperger's syndrome DX:Asperger' s syndrome Mild intermittent asthma, uncomplicated DX:Mild intermittent asthma, uncomplicated COPD (chronic obstructive pu lmonary disease) ([facility]) DX:COPD (chronic obstructive pulmonary disease) ([facility]) Autism DX:Autism Cervicalgia DX:Cervicalgia Depression DX:Depression Dyspnea [...] Info) Description 10/07/2024 5:15 PM EDT Appointment [facility] CT Scan [address] [place] [phone] 10/16/2024 10:00 AM EDT Office Visit Thoracic Surgery - [place] [address] [phone] Perry Hutchison PA [address] [address] Health Maintenance Due Date Last Done Comments [...] mg/dL LAB CHEMISTRY METHOD 04/24/2024 4:54 PM [facility] Triglycerides 393(H) 0 - 150 mg/dL LAB CHEMISTRY METHOD 04/24/2024 4:54 PM [facility] HDL 28(L) >=40 mg/dL LAB CHEMISTRY METHOD 04/24/2024 4:54 PM [facility] LDL Calculated 79 0 - 100 mg/dL LAB CHEMISTRY METHOD 04/24/2024 4:54 PM [facility] VLDL Cholesterol Joni 78.6 mg/dL LAB CHEMISTRY METHOD 04/24/2024 4:54 PM [facility] Non HDL Chol. (LDL+VLDL) 158(H) <145 mg/dL LAB CHEMISTRY METHOD 04/24/2024 4:54 PM [facility] Chol/HDL Ratio 6.6(H) 0.0 - 4.4 LAB CHEMISTRY METHOD 04/24/2024 4:54 PM [facility] Blood Venous blood specimen / Unknown Venipuncture / Unknown 04/24/2024 1:37 PM EST 04/24/2024 1:37 PM EST us Viral Ramos DO LAB BLOOD ORDERABLES Final Re sult [facility] [address] [place] [address], from Last 3 Months or Most Recently Relevant to Health Maintenance Insurance [facility] [employer] Care Teams Tracing Lathe Set Up Operator Relationship Specialty Start Date End Date Viral Ramos DO [address] [place] [phone] PCP - General Internal Medicine 08/25/20
--- OUTSIDE RECORDS SUMMARY | 2024-08-08 14:51 | XMS_ITS | Encounter Summary ---
Author Organization [facility] Address [address] [place] [phone] Phone Care Team Providers Care Packaging Clerk Name Role Phone Unavailable Primary Care Provider Unavailabl e Encounter Details Date Type Department Care Team (Late st Contact Info) Description 05/24/2012 Documentation [facility] [place] [address] Family Medicine, Physician [address] [place], [place] [id number] Social History Tobacco Use Types Packs/Day Years [...]
--- OUTSIDE RECORDS SUMMARY | 2024-08-08 14:51 | XMS_ITS | Encounter Summary ---
Author Organization [facility] Address [address] [place] [address] Phone Care Team Providers Care Tourist Home Keeper Name Role Phone Unavailable Primary Care Provider Unavailabl e Encounter Details Date Type Department Care Team (Late st Contact Info) Description 01/26/2017 Conversion Encounter [facility] - [address] [address] Social History Tobacco Use Types Packs/Day Years [...]
== END 2024-08-08 12:25 | disposition home or self-care (01) ==
LOC: HO.XRAY 12:24
PROVIDERS: PCP Internal Medicine; Visit Provider Nurse Practitioner Family
DX: M54.50 Low back pain, unspecified (principal)
CPT/HCPCS: 72114

== ENCOUNTER → 2024-08-08 12:30 | Outpatient (BNV) | payer OTHER, SELFPAY | PROVIDERS: PCP Internal Medicine; Visit Provider Specialist | DX: M54.50 Low back pain, unspecified (principal) | CPT/HCPCS: 72114 ==

== ENCOUNTER 2025-05-29 10:31 | Outpatient (AMB) | payer OTHER, SELFPAY ==
--- OUTSIDE RECORDS SUMMARY | 2025-05-28 13:45 | XMS_ITS | Encounter Summary ---
Author Organization [facility] Address [address] [place] [address] Care Team Providers Care Fence Installer Name Role Phone Viral Ramos DO Primary Care Provider [phone] Encounter Details Date Type Department Care Team (Late st Contact Info) Description 05/28/2025 1:45 PM EST Lab Draw Station - [address] [address] Splenomegaly, not elsewhere classified; Unspecified symptoms and signs involving the genitourinary system Social History Tobacco Use Types Packs/Day Years Used Date Smoking Tobacco: Never Smokeless Tobacco: Never Alcohol Use Standard Drinks/Week Comments Never 0 (1 standard drink = 0.6 oz pur e alcohol) Sex and Gender Information Value Date Recorded Sex Assigned at Male 08/16/2024 3:28 PM EST Legal Sex Male 8:09 PM EST Gender Identity Male 08/16/2024 3:28 PM EST Sexual Orientation Straight 08/16/2024 3: 28 PM EST documented as of this encounter Plan of Treatment Not on file documented as of this encounter Procedures Procedure Name Priority Date/Time Associated Diagnosis Comments URINALYSIS WITH REFLEX MICROSCOPIC Routine 05/28/2025 1:42 PM EST Unspecified symptoms and signs involving the genitourinary system KYLE MORALES VIRUS IGG, IGM, NUCLEAR AND EARLY ANTIBODIES Routine 05/28/2025 1:42 PM EST Splenomegaly, not elsewhere classified CBC WITH AUTO DIFFERENTIAL Routine 05/28/2025 1:42 PM EST Splenomegaly, not elsewhere classified CBC AND DIFFERENTIAL Routine 05/28/2025 1:42 PM EST Splenomegaly, not elsewhere classified CULTURE URINE Routine 05/28/2025 1:42 PM EST Unspecified symptoms and signs involving the genitourinary system COMPREHENSIVE METABOLIC PANEL Routine 05/28/2025 1:42 PM EST Splenomegaly, not elsewhere classified documented in this encounter Results * CBC auto differential (05/28/2025 1:42 PM EST) Pathologist [facility] WBC 4.8 4.8 - 10.8 K/mcL LAB HEMETOLOGY METHOD 05/28/2025 3:29 PM [facility] RBC 5.00 4.50 - 5.50 M/mcL LAB HEMETOLOGY METHOD 05/28/2025 3:29 PM [facility] Hemoglobin 15.1 13.5 - 17.5 g/dL LAB HEMETOLOGY METHOD 05/28/2025 3:29 PM [facility] Hematocrit 43.2 42.0 - 54.0 % LAB HEMETOLOGY METHOD 05/28/2025 3:29 PM [facility] MCV 86.9 79.0 - 98.0 FL LAB HEMETOLOGY METHOD 05/28/2025 3:29 PM [facility] MCH 30.4 27.0 - 32.0 pcg LAB HEMETOLOGY METHOD 05/28/2025 3:29 PM [facility] MCHC 35.0 32.0 - 37.0 g/dL LAB HEMETOLOGY METHOD 05/28/2025 3:29 PM [facility] RDW 12.9 11.0 - 15.0 % LAB HEMETOLOGY METHOD 05/28/2025 3:29 PM [facility] Platelets 135 130 - 400 K/mcL LAB HEMETOLOGY METHOD 05/28/2025 3:29 PM [facility] MPV 11.0 7.0 - 11.0 FL LAB HEMETOLOGY METHOD 05/28/2025 3:29 PM [facility] NRBC 0.0 <1.0 % LAB HEMETOLOGY METHOD 05/28/2025 3:29 PM [facility] NRBC Absolute 0.00 <0.10 K/mcL LAB HEMETOLOGY METHOD 05/28/2025 3:29 PM [facility] Neutrophils Relative 50.0 % LAB HEMETOLOGY METHOD 05/28/2025 3:29 PM [facility] Lymphocytes Relative 36.8 % LAB HEMETOLOGY METHOD 05/28/2025 3:29 PM [facility] Monocytes Relative 8.0 % LAB HEMETOLOGY METHOD 05/28/2025 3:29 PM [facility] Eosinophils Relative 4.0 % LAB HEMETOLOGY METHOD 05/28/2025 3:29 PM [facility] Basophils Relative 0.8 % LAB HEMETOLOGY METHOD 05/28/2025 3:29 PM [facility] Immature Granulocytes Relative 0.4 % LAB HEMETOLOGY METHOD 05/28/2025 3:29 PM [facility] Neutrophils Absolute 2.38 1.50 - 7.00 K/mcL LAB HEMETOLOGY METHOD 05/28/2025 3:29 PM [facility] Lymphocytes Absolute 1.75 1.00 - 5.00 K/mcL LAB HEMETOLOGY METHOD 05/28/2025 3:29 PM [facility] Monocytes Absolute 0.38 0.20 - 1.00 K/mcL LAB HEMETOLOGY METHOD 05/28/2025 3:29 PM [facility] Eosinophils Absolute 0.19 0.00 - 0.50 K/mcL LAB HEMETOLOGY METHOD 05/28/2025 3:29 PM [facility] Basophils Absolute 0.04 0.00 - 0.20 K/[facility] LAB HEMETOLOGY METHOD 05/28/2025 3:29 PM [facility] Immature Granulocytes Absolute 0.02 0.00 - 0.03 K/[facility] LAB HEMETOLOGY METHOD 05/28/2025 3:29 PM [facility] Blood Venipuncture / Unknown 05/28/2025 1:42 PM EST 05/28/2025 1:42 PM EST [facility] LAB BLOOD ORDERABLES Final Resul t [facility] [address] [place] [address], [place] [phone] * (ABNORMAL) Urinalysis with reflex microscopic (05/28/2025 1:42 PM EST) Specific [place] Urine 1.028 1.003 - 1.030 LAB URINALYSIS - AUTOMATED METHOD 05/28/2025 3:27 PM [facility] pH, Urine 5.5 5.0 - 8.0 pH LAB URINALYSIS - AUTOMATED METHOD 05/28/2025 3:27 PM [facility] Leukocytes, Urine Negative Negative LAB URINALYSIS - AUTOMATED METHOD 05/28/2025 3:27 PM [facility] Nitrite, Urine Negative Negative LAB URINALYSIS - AUTOMATED METHOD 05/28/2025 3:27 PM [facility] Protein, Urine Negative <=Trace mg/dL LAB URINALYSIS - AUTOMATED METHOD 05/28/2025 3:27 PM [facility] Glucose, Urine Negative Negative mg/dL LAB URINALYSIS - AUTOMATED METHOD 05/28/2025 3:27 PM [facility] Ketones, Urine Trace(A) Negative mg/dL LAB URINALYSIS - AUTOMATED METHOD 05/28/2025 3:27 PM [facility] Urobilinogen, Urine 1.0 0.2 - 1.0 mg/dL LAB URINALYSIS - AUTOMATED METHOD 05/28/2025 3:27 PM EST [facility] Bilirubin, Urine Negative Negative LAB URINALYSIS - AUTOMATED METHOD 05/28/2025 3:27 PM EST [facility] Blood, Urine Negative Negative LAB URINALYSIS - AUTOMATED METHOD 05/28/2025 3:27 PM EST [facility] Urine Non-blood Collection / Unknown 05/28/2025 1:42 PM EST 05/28/2025 1:42 PM EST [facility] LAB URINE ORDERABLES Final Resul t Performing Organization Address City/[facility] Co de Phone Number [facility] [address] [place] [address], [place] [phone] * (ABNORMAL) Kyle morales virus IgG, IgM, nuclear and early antibodies (05/28/2025 1:42 PM EST) EBV VCA IgG Positive(A) Negative LAB CHEMISTRY METHOD 05/29/2025 10:50 AM EST [facility] EBV VCA IgM Negative Negative LAB CHEMISTRY METHOD 05/29/2025 10:50 AM EST [facility] EBV Nuclear Ag Ab Positive(A) Negative LAB CHEMISTRY METHOD 05/29/2025 10:50 AM EST [facility] EBV Early Ag Ab Negative Negative LAB CHEMISTRY METHOD 05/29/2025 10:50 AM EST [facility] Blood Venipuncture / Unknown 05/28/2025 1:42 PM EST 05/28/2025 1:42 PM EST Narrative [facility] - 05/29/2025 10:50 AM EST Suggestive of a past Kyle-Morales Virus infection. [facility] BLOOD ORDERABLES Final Resul t [facility] [address] [place] [address], [place] [phone] * Culture urine (05/28/2025 1:42 PM EST) Culture, Urine <10,000 CFU/mL gram positive cocci, insignificant count, no further workup 05/29/2025 11:27 AM EST [facility] Urine Non-blood Collection / Unknown 05/28/2025 1:42 PM EST 05/28/2025 1:42 PM EST [facility] MICROBIOLOGY - GENERAL ORDER KOBY Final Result Performing Organization Address [facility]/ZIP Co de Phone Number [facility] [address] [place] [address], [place] [phone] * (ABNORMAL) Comprehensive metabolic panel (05/28/2025 1:42 PM EST) Sodium 138 133 - 145 mmol/L 05/28/2025 5:34 PM [facility] Potassium 4.1 3.5 - 5.5 mmol/L 05/28/2025 5:34 PM [facility] Chloride 102 96 - 110 mmol/L 05/28/2025 5:34 PM [facility] CO2 26 21 - 32 mmol/L 05/28/2025 5:34 PM [facility] Anion Gap 10 3 - 11 05/28/2025 5:34 PM [facility] Glucose 91 70 - 100 mg/dL 05/28/2025 5:34 PM [facility] BUN 14 5 - 25 mg/dL 05/28/2025 5:34 PM [facility] Creatinine 1.01 0.70 - 1.30 mg/dL 05/28/2025 5:34 PM [facility] eGFR 99 >=60 mL/min/1. 73m2 05/28/2025 5:34 PM [facility] Comment:Calculation based on the Chronic Kidney Disease Epidemiology Collaboration (CKD-EPI) equation refit without adjustment for race. BUN/Creatinine Ratio 13.9 05/28/2025 5:34 PM [facility] Calcium 8.7 8.5 - 10.5 mg/dL 05/28/2025 5:34 PM [facility] AST (SGOT) 51(H) 10 - 42 unit/L 05/28/2025 5:34 PM [facility] ALT (SGPT) 118(H) 10 - 60 unit/L 05/28/2025 5:34 PM [facility] Alkaline Phosphatase 77 42 - 121 unit/L 05/28/2025 5:34 PM [facility] Total Protein 7.0 6.0 - 8.0 g/dL 05/28/2025 5:34 PM [facility] Albumin 4.3 3.2 - 5.0 g/dL 05/28/2025 5:34 PM [facility] Total Bilirubin 0.4 0.0 - 1.4 mg/dL 05/28/2025 5:34 PM [facility] Blood Venipuncture / Unknown 05/28/2025 1:42 PM EST 05/28/2025 1:42 PM EST [facility] BLOOD ORDERABLES Final Resul t [facility] [address] [place] [address], documented in this encounter Visit Diagnoses Diagnosis Splenomegaly, not elsewhere classified Unspecified symptoms and signs involving the genitourinary system documented in this encounter Care Teams Fence Installer Relationship Specialty Start Date End Date Viral Ramos DO [address] [place] [phone] PCP - General Internal Medicine 08/25/20 documented as of this encounter
[2025-05-29 10:33] VITALS: BP 96/68; PULSE 77; O2SAT 98; BMI 31.2
--- NOTE | 2025-05-29 10:33 | A.OFFVIS_ITS ---
Vital Signs 05/29/25 10:33 Height 5 ft 8 in Weight 205 lb 0.478 oz BMI 31.2 BP 96/68 Blood Pressure Location Lt brachial Position Sitting Pulse 77 Pulse Source Pulse Oximeter Pulse Oximetry (%) 98 Oxygen Delivery Method Room Air Intake Visit Reasons: Asthma Freelance Court Reporter Required: No Die Welder: Die Welder offered & declined Allergies glutamine (From Airborne (ascorbate sodium)) Allergy (Mild, Verified 05/29/25 10:36) Unknown herbal complex no.124 (From Airborne (ascorbate sodium)) Allergy (Mild, Verified 05/29/25 10:36) Unknown Latex, Natural Rubber Allergy (Mild, Verified 05/29/25 10:36) Unknown lysine HCl (From Airborne (ascorbate sodium)) Allergy (Mild, Verified 05/29/25 10:36) Unknown multivitamin with minerals (From Airborne (ascorbate sodium)) Allergy (Mild, Verified 05/29/25 10:36) Unknown perfume Allergy (Mild, Verified 05/29/25 10:36) Unknown risperidone (From Risperdal) Allergy (Mild, Verified 05/29/25 10:36) Unknown Sulfa (Sulfonamide Antibiotics) Allergy (Mild, Verified 05/29/25 10:36) unknown chemical based products Allergy (Mild, Uncoded 03/01/24 15:21) Unknown cleaning products Allergy (Mild, Uncoded 03/01/24 15:21) Unknown cologna Allergy (Mild, Uncoded 03/01/24 15:21) Unknown tennex Allergy (Mild, Uncoded 03/01/24 15:21) Unknown HPI Comments Details: The patient is a 34-year-old gentleman with a known history of asthma in addition to underlying allergies. The patient also has a diagnosis of sleep apnea and has been on CPAP. Apparently while he was evaluated by Pulmonary in the past he had a abnormal alpha-1 antitrypsin study. The family is not way of any genotype or levels. Apparently the abnormal allele came from the dad. He is not clear if the mom has an abnormal early 0. Will have to redo the genotype at this time. Also check his alpha-1 levels. In the meantime the patient has been on Trelegy inhaler with good effect. He has not had to use his rescue inhaler. Typically less than twice a week. Has not required prednisone. He has not had allergy testing many years. Will go ahead and recheck his allergy testing and also his alpha-1 levels. The patient seems to be stable on his current therapy. Will have him come back with pulmonary function studies. Patient also continues uses CPAP. He has been followed closely by Neurology. The CPAP therapy appears to be affecting beneficial. He does use it for more than 4 hours a night. He does use a nasal mask any does get a very dry mouth. Explained to him this can result in poor disease of the gingiva and 2 DKA. Therefore, the patient will start using a chinstrap. I will request from from his [employer]. 01/31/2023 The patient is here for pulmonary follow-up visit. Overall the patient still about the same. Complaining of dyspnea on exertion. Specially going up a flight of stairs. We did go for brief walking oximetry today and the patient and maintain a pulse ox of 96%. Although, became tachycardic to about 115 when going up flight of stairs. We also reviewed his pulmonary function studies. He does have a severe obstruction which is concerning. He did have a chest x-ray back in July without any significant diagnostic information. Based on his severe obstruction on his PFTs and his ongoing symptoms of dyspnea on maximum respiratory therapy I will go ahead and request a CT scan of the chest with inspiratory and expiratory cuts to better address the obstructive physiology. In addition we did discuss the off 1 testing. He had a suspicion of alpha-1 antitrypsin deficiency. However, his genotype came back normal, mm. His levels are also within normal limits. I did review the data from his pr joann director chemistry from 2017 which also demonstrated a normal genotype. therefore, the patient does not have a 1-2% efficiency which is good for him will continue with current respiratory therapy. The patient will increase his exercise activity. Did give information about online pulmonary rehab specially since he lives further out otherwise he can consider an in person just has to call the office and will put a request. Otherwise the patient will return in 3- 4 months to review his CT scan of the chest. 08/04/2023 the patient is here for pulmonary follow-up visit. The patient is feeling a lot better after his surgery. had been complaining of back pain and neck pain and this discomfort over that area and his symptoms have subsided after the surgical intervention. The patient tolerated procedure well. In the meantime he has been monitor closely by Neurology regarding the underlying sleep apnea. The patient has been on CPAP. The CPAP therapy has been affecting beneficial. He does use it for more than 4 hours a night. Again he will continue to work with Neurology for further adjustments. His mother was wondering about a sleep study in the hospital to further address sleep apnea. I did encourage them to seek out further recommendations from Neurology. The patient initially was sent over to have assessment of alpha-1 antitrypsin deficiency. His genotype was normal. His alpha-1 levels were within normal. At this point is on a reasonable to check the alpha-1 levels 1 more time to make sure that continued to be stable. Will plan to have repeat blood work next y ear. In regards of imaging studies. The patient should have a repeat CT scan To make sure there is no recurrence. 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 03/01/2024 the patient is here for a pulmonary follow-up visit. Overall the patient has been doing well. Recovered well from surgery. The patient has continue to follow-up with thoracic surgery at [facility] and will continue getting serial imaging studies there. In the meantime he has recovered from surgery. No significant pain at the site. He has been using the CPAP. CPAP therapy continues to be affecting beneficial. He does use it for more than 4 hours a night. 05/29/2025 the patient is here for pulmonary follow-up visit. Overall the patient has been doing well. He has asthma has been stable. He continues use the Trelegy and also has a rescue inhaler. Typically does not have to use her rescue inhaler. Denies any recent flare-ups or need for prednisone. He follows up closely with thoracic surgery already he has history of schwannoma. He is status post resection he has been very well recovering well. He is working closely with physiatry regarding his back pain. In the meantime the patient does have reflux disease. We did talk about the reflux diet making sure that he sleeps elevated. The patient has gained some weight. He is to work on weight management. He does have a history of sleep apnea. Unfortunately with the weight gain that can potentially worsen his apnea. Therefore we management is dennis. He does have a CPAP and has been adherent to the CPAP therapy. He will continue with the current respiratory therapy and follow-up in a year's time. If any issues arise he will call for an earlier assessment or recommendations. [facility] Medical History (Updated 05/12/25 @ 16:13 by AYLIN Laboy) ILD (interstitial lung disease) Pulmonary nodule Schwannoma of nerve of chest Asthma-COPD overlap syndrome Smesf-1-gzmqaiioeyz deficiency PTSD (post-traumatic stress disorder) Anxiety Tachycardia Hyperreflexia Scoliosis IBS (irritable bowel syndrome) Rhinitis Cervicalgia Myofascial pain syndrome Fibromyalgia Dyspnea Autism Depression Seizure Aspergers' syndrome Hypothyroidism GERD (gastroesophageal reflux disease) Asthma Arthritis Tourette syndrome Surgical History (Updated 05/12/25 @ 13:09 by Ivett Meza MA) H/O wrist surgery Social History Alcohol intake: never Patient Tobacco Use Status: Never used Tobacco Review of Systems Const Denies fever(s) and Reports weight gain Eyes Denies change in vision ENT Denies change in voice and Reports nasal congestion Card Denies chest pain and Denies dyspnea on exertion Resp Reports cough, Denies dyspnea on exertion and Denies wheezing GI Reports no additional complaints Musc Reports no additional complaints Skin/Breast Denies rash Neuro Reports no additional complaints Abran/Lymph Denies lymphadenopathy Aller/Immun Denies wheezing Physical Exam Vital Signs: Last Vital Signs Pulse 77 05/29/25 10:33 BP 96/68 05/29/25 10:33 Pulse Ox 98 05/29/25 10:33 Oxygen Delivery Method Room Air 05/29/25 10:33 BMI result Body Mass Index 31.2 Const General: comfortable HEENT Head: Yes atraumatic Neck Neck: Yes supple Chest Chest palpation & inspection: normal inspection of the chest Resp Effort & Inspection: normal respiratory effort Auscultation: clear to auscultation bilaterally and no wheezes Cardio Rate: regular rate Rhythm: regular rhythm Heart sounds: S1 normal heart sound present and S2 normal heart sound present GI Palpation (GI): Soft to palpation Skin General skin exam: no rashes or lesions noted Extrem General: Yes no clubbing, cyanosis or edema Assessment & Plan Assessment & Plan (1) Asthma: Code(s): J45.909 - Unspecified asthma, uncomplicated Category: Medical Qualifiers: Asthma complication type: uncomplicated Asthma persistence: persistent Asthma severity: moderate Qualified Code(s): J45.40 - Moderate persistent asthma, uncomplicated (2) Obstructive sleep apnea (adult) (pediatric): Comment: Baseline ahi 19/hr Supine 76/hr O2 paty 85 %. Code(s): G47.33 - Obstructive sleep apnea (adult) (pediatric) Category: Medical (3) Periodic limb movement: Comment: Leg spasm, periodic limb movements startle response Code(s): G47.61 - Periodic limb movement disorder Category: Medical (4) ILD (interstitial lung disease): Comment: DIP changes on lung parenchyma, which are smoking related lung changes Code(s): J84.9 - Interstitial pulmonary disease, unspecified Category: Medical Plan Continue Trelegy MARCE as needed continue singulair continue anti histamine therapy continue APAP as per neurology, CT chest serial CT chest per thoracic surgery smoking exposure with ILD changes on path report. Needs to avoid second hand smo ke F/U 12 months Medications: Refilled albuterol sulfate 90 mcg/actuation 2 inhalations inhalation Q6H PRN 18 grams 12RF shortness of breath or wheezing 30 days J44.9 - Chronic obstructive pulmonary disease, unspecified, J45.909 - Unspecified asthma, uncomplicated montelukast 10 mg PO DAILY 90 tabs 3RF 90 days J45.909 - Unspecified asthma, uncomplicated yejrjaihcnq-jzwkuqkuc-egswhyqb 100-62.5-25 mcg (Trelegy Ellipta) 1 inh inhalation DAILY 3 ea 3RF 90 days J45.909 - Unspecified asthma, uncomplicated Coding Level of Care Code Est Pt Level 4 (19170) Diagnoses Moderate persistent asthma without complication J45.40 Asthma complication type: uncomplicated Asthma persistence: persistent Asthma severity: moderate Obstructive sleep apnea (adult) (pediatric) G47.33 Periodic limb movement G47.61 ILD (interstitial lung disease) J84.9 Time Spent (min) 17
--- OUTSIDE RECORDS SUMMARY | 2025-05-29 13:16 | XMS_ITS | Encounter Summary ---
Author Organization [facility] Address [address] [place], [place] [id number] Phone Care Team Providers Care Volunteer Manager Name Role Phone Unavailable Primary Care Provider Unavailabl e Encounter Details Date Type Department Care Team (Late st Contact Info) Description 01/26/2017 Conversion Encounter [facility] - [address] [address] Social History Tobacco Use Types Packs/Day Years [...]
--- OUTSIDE RECORDS SUMMARY | 2025-05-29 13:16 | XMS_ITS | Clinical Summary ---
Author Organization [address] [facility] Address [address] [place] [address] Phone Care Team Providers Care Facility Planner Name Role Phone ShreeViral galdamez Primary Care Provider [phone] Allergies Active Allergy Reactions Criticality Noted Date Comments Adhesive Tape-Silicones Rash 04/03/2025 Ascorbic Acid 03/15/2023 Bisacodyl 03/15/2023 Fluticasone Propion-Salmeterol [...] needed. Active fexofenadine (DENNIS) 180 mg tablet Active fluticasone-umec lidinium-vilante rol (Trelegy Ellipta) 100-62.5-25 mcg inhaler Inhale into the lungs. Active levothyroxine (SYNTHROID, LEVOTHROID) 88 mcg tablet Take 88 mcg by mouth daily. Active montelukast (SINGULAIR) 10 mg tablet Active pimecrolimus (Elidel) 1 % cream 02/23/2021 Active QUEtiapine (SEROquel) 100 mg tablet Take 100 mg by mouth 2 times daily. Active linaCLOtide (Linzess) 72 mcg capsuleIndicatio ns:Irritable bowel syndrome with constipation,Gas troesophageal reflux disease, unspecified whether esophagitis present Take 1 capsule (72 mcg total) by mouth 1 (one) time each day before breakfast. 90 each 3 07/02/2024 07/02/19 26 Active pantoprazole (PROTONIX) 40 mg EC tabletIndication s:Irritable bowel syndrome with constipation,Gas troesophageal reflux disease, unspecified whether esophagitis present Take 1 tablet (40 mg total) by mouth 1 (one) time each day before breakfast. Do not crush, chew, or split. 90 each 3 04/08/2025 04/08/20 26 Active Active Problems Problem Noted Date Diagnosed Date MELISSA (dyspnea on exertion) 04/03/2025 Assessment & Plan (04/07/2025 8:41 AM EDT): As above. I suspect this is mostly related to deconditioning and underlying pulmonary disease; he was encouraged to discuss it further with his roustabout hand. We will continue to readdress this. DYLAN (obstructive sleep apnea) 03/26/2024 Overview (06/18/2024): [...] syncope or presyncope, or or chest pain. Assessment & Plan (04/07/2025 8:41 AM EDT): The patient reports a fast pounding heartbeat with any exertion, especially when really short of breath; we discussed that this may be a normal physiological response to exercise especially if the patient is not well-conditioned and is getting short of breath. He previously wore a 48 hour Holter for the same symptoms that was unrevealing; now that it is cooler and he is not symptomatic, repeating this would likely not be helpful. Nonetheless, I did offer to repeat this but his mother declined. His mother also asked for another stress echocardiogram or just a regular echocardiogram, but given that he is no longer symptomatic it is unclear if we could reproduce his symptoms and again this would likely be unrevealing. A stress echocardiogram previously completed for similar symptoms showed no ischemia and made no mention of any concerning structural abnormalities; she felt as though he had not completed the test and I explained to her that he did well exercising for almost 10 minutes and achieving greater than 85% MPHR indicating it was a valid test. Again I offered to repeat this but the utility of it is unclear. He has no murmur on exam to suggest outflow tract obstruction and his ECG shows no indication of LVH to suggest a hypertrophic cardiomyopathy. He feels as though his oxygen drops prior to his palpitations starting; I suggested that cardiopulmonary stress testing may be a good next step and requested they discuss this with his roustabout hand. She is agreeable to this. No changes to his medications appear to be warranted at this time. They are aware to seek emergent medical attention for any palpitations accompanied by such as lightheadedness or dizziness, syncope or presyncope, or or chest pain. We will plan to follow up ion the early spring to discuss a game plan for further evaluation as needed. 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 Razo on 05/15/2023. Assessment & Plan (05/02/2025 2:57 PM EST): Mr. Coley is a 34-year-old male who had a robotic posterior mediastinal mass resection and right lower lobe wedge x 2 in May 2023. The mediastinal mass that was resected was negative for malignancy and instead showed a benign neurofibroma. The right lower lobe wedge resection x 2 for pulmonary nodules were also negative for malignancy and instead showed a benign intraparenchymal lymph node in each specimen. While patient was over the phone during his video visit we did discuss his most recent chest CT scan on 04/[address] [facility] which continues to show multiple small pleural associated nodules bilaterally remained stable and remains under 5 mm. There was an incidental finding of a left-sided thyroid nodule for which patient was instructed to contact his PCP for further assessment which may require ultrasound imaging. His next chest CT scan will be due in 12 months time which will be April 2026 and have a visit at the thoracic surgery department thereafter to discuss results. Mediastinal mass 03/20/2023 Overview (06/18/2024): Last Assessment [...] benign intraparenchymal lymph node in each specimen. The patient's most recent surveillance chest CT scan performed on November 29, 2023 shows no recurrence mediastinal mass. He does have multiple pulmonary nodules the largest of which is a 5 mm nodule in the lingula. He has no mediastinal adenopathy. We will continue routine surveillance for the patient's past history of mediastinal mass and his pulmonary nodules with a repeat CT chest in 1 year, November 2024. The patient will have a follow-up visit after the CT scan. Patient is told to call the office should he have any questions or concerns prior to his next appointment. Assessment & Plan (10/27/2024 2:51 PM EDT): Mr. Coley is a 34-year-old male who had a robotic posterior mediastinal mass resection and right lower lobe wedge x 2 in May 2023. The mediastinal mass that was resected was negative for malignancy and instead showed a benign neurofibroma. The right lower lobe wedge resection x 2 for pulmonary nodules were also negative for malignancy and instead showed a benign intraparenchymal lymph node in each specimen. While patient was over the phone during his video visit we did discuss his most recent chest CT scan on October 23, [address] [facility] which continues to show multiple small pleural associated nodules bilaterally remained stable as well as a 3 mm peripheral nodule in the posterior aspect of the superior segment of the left lower lobe. There is no new or worsening pulmonary nodules or mediastinal mass recurrence. His next chest CT surveillance scan will be due in 12 months time which will be October 2025 and have a visit at the thoracic surgery department thereafter to discuss results. PSVT (paroxysmal supraventricular tachycardia) 0 08/24/2020 Overview [...] bothered by it. I showed him the [email or web address] mobile leeanna which they can get and check his rhythms if they are concerned. We can see them in the patient portal. Recommend he get a TSH checked return here if necessary. 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 I have reviewed with the patient the importance of a heart healthy lifestyle which includes eating a low-fat low-salt diet, getting regular exercise, maintaining a healthy weight, not smoking, and following up with routine medical care. Assessment & Plan (04/07/2025 8:41 AM EDT): The patients most recent lipid panel shows an LDL of 116 and triglycerides of 245 on 10/29/2024. Previous lipid panel completed 04/24/2024 showed an LDL of 79; he was not on cholesterol medication then. We discussed that this is clearly something he should be able to achieve again with lifestyle modifications which should be attempted first given his young age. Lifestyle modifications with improved diet (low fat, low carb) and increased activity as tolerated was encouraged; we will revisit this when he is seen again in the spring. Hypothyroid 08/14/2020 Impaired glucose tolerance 08/14/2020 Insomnia 08/14/2020 Social anxiety disorder 08/14/2020 Encounters Date Type Department Care Team Description 05/28/2025 1:45 PM EST Lab Draw Station - [place] [address] [place] [address] Splenomegaly, not elsewhere classified; Unspecified symptoms and signs involving the genitourinary system 05/22/2025 2:19 PM EST - 05/22/2025 11:59 PM EST Hospital Encounter [facility] Ultrasound [address] [place] [phone] Thyroid nodule Discharge Disposition: Home or Self Care 04/30/2025 11:30 AM EST Office Visit Thoracic Surgery - [place] [address] [facility] [address] [place] [phone] Perry Hutchison PA Neurofibroma (Primary Dx) 04/23/2025 Telephone Gastroenterology - [address] [facility] 299 [facility] [address] [place] [phone] Tyler Langston MD 04/21/2025 Telephone Orthopedic Surgery [facility] [address] [facility] [address] [place] [phone] Bianca Farris 04/17/2025 2:10 PM EST Lab Draw Station - [place] [address] [place] [address] Fatigue; Myxedema heart disease 04/14/2025 12:43 PM EST - 04/14/2025 11:59 PM EST Hospital Encounter [facility] CT Scan [address] [place] [phone] Multiple lung nodules Discharge Disposition: Home or Self Care 04/09/2025 Telephone Orthopedic Surgery [facility] [address] [phone] Moncho Mensah DPM 04/03/2025 3:10 PM EDT Office Visit [facility] - [facility] [address] [facility] [address] [place] [phone] Taylor Rivera NP Palpitations (Primary Dx); MELISSA (dyspnea on exertion); Mixed hyperlipidemia 04/02/2025 2:30 PM EDT Office Visit Orthopedic Surgery [facility] [address] [phone] Moncho Mensah DPM Left foot pain (Primary Dx); Left medial tibial stress syndrome, initial encounter; Leg length discrepancy; Equinus contracture of left ankle; Lumbosacral radiculopathy from Last 3 Months Surgical History Surgery Date Site/Laterality Comments OTHER SURGICAL HISTORY 05/15/2023 Right PROCEDURE: MS THORACOSCOPY W/THERA WEDGE RESEXN INITIAL UNILAT; COMMENT: RLL wedge Medical History Medical History Date Comments Uzcvn-1-lyjaizdbcui deficien cy ([facility] V24, [facility] V28) DX:Hsqmt-8-ntjfwssdmbu defic iency ([facility]) Anxiety disorder DX:Anxiety diso rder Rheumatoid arthritis ([facility]/ C V24, [facility] V28) DX:Rheumatoid arthritis ([facility] ) Asperger's syndrome DX:Asperger' s syndrome Mild intermittent asthma, uncomplicated DX:Mild intermittent asthma, uncomplicated COPD (chronic obstructive pu lmonary disease) ([facility] V24, [facility] V28) DX:COPD (chronic o bstructive pulmonary disease) ([facility]) Autism DX:Autism Cervicalgia DX:Cervicalgia Depression DX:Depression Dyspnea DX:Dyspnea Dyspnea DX:Dyspnea Fibromyalgia DX:Fibromyalgia GERD (gastroesophageal reflux disease) DX:GERD (gastroesophageal reflux disease) Hyperreflexia DX:Hyperreflexia Hypothyroidism DX:Hypothyroidis m IBS (irritable bowel syndrome) D X:IBS (irritable bowel syndrome) Myofascial pain syndrome DX:Myof ascial pain syndrome PTSD (post-traumatic stress disorder) DX:PTSD (post-traumatic stress disorder) Allergic rhinitis due to pollen DX:Allergic rhinitis due to pollen Scoliosis DX:Scoliosis Seizure (CMS/HCC V24, CMS/HCC V28) DX:Seizure (HCC) Seizure (CMS/HCC V24, CMS/HCC V28) DX:Seizure (HCC) Supraventricular tachycardia (CMS/HCC V24) DX:Supraventricular tachycar latrice (HCC) Tourette syndrome DX:Tourette sy ndrome Neurofibroma [...] Orientation Straight 08/16/2024 3: 28 PM EST Last Filed Vital Signs Vital Sign Reading Time Taken Comments Blood Pressure 117/76 04/30/2025 11:21 AM EST Pulse 78 04/30/2025 11:21 AM EST Temperature 37 C (98.6 F) 04/30/2025 11:21 AM EST Respiratory Rate 16 04/30/2025 11:21 AM EST Oxygen Saturation 97% 04/30/2025 11:21 AM EST Inhaled Oxygen Concentration - - Weight 91.4 kg (201 lb 6.4 oz) 04/30/2025 11:21 AM EST Height 175.3 cm (5' 9 ) 04/30/2025 11:21 AM EST Body Mass Index 29.74 04/30/2025 11:21 AM EST Plan of Treatment Health Maintenance Due Date Last Done Comments Drug Screen 1989 Non-Opioid Controlled Substance Agreement 1989 COVID-19 Vaccine (#1) 1994 Hepatitis A Vaccines (1 of 2 - Risk 2-dose series) 2008 HPV Vaccines (1 - 3-dose SCDM series) 2016 DTaP,Tdap,and Td Vaccines (8 - Td or Tdap) 02/18/2018 02/19/2008, 01/02/2001, 11/11/1994, Additional history exists HIV Screening 05/14/2022 Hepatitis C Screening 05/14/2022 Social Influencers of Health Screening 05/14/2022 Depression Screening 06/12/2024 Influenza Vaccine (#1) 2025 03/04/2020 Cholesterol Screening (Lipid Panel) 10/29/2029 10/29/2024, 04/24/2024 Pneumococcal Vaccine: Pediatrics (0 to 5 Years) and At-Risk Patients (6 to 49 Years) (3 of 3 - PCV20 or PCV21) 09/22/2039 08/07/2017, 02/13/2001 RSV Immunization Adult Patients (1 - 1-dose 75+ series) 2064 HIB Vaccines Completed 02/10/1991, 06/1990, 06/12/1990 IPV Vaccines Completed 11/11/1994, 02/12, 03/12/1990, Additional history exists MMR Vaccines Completed 11/11/1994, 03/11/1991 Hepatitis B Vaccines Completed 07/13/2001, 02/13/2001, 01/02/2001 Meningococcal ACWY Vaccine Completed 11/27/2006 Meningococcal B Vaccine Aged Out No l onger eligible based on patient's age to complete this topic RSV Immunization Patients Under 20 months Aged Out No longer eligible based on patient's age to complete this topic Varicella Vaccines Aged Out No longer eligible based on patient's age to complete this topic Procedures Procedure Name Priority Date/Time Associated Diagnosis Comments CBC WITH AUTO DIFFERENTIAL Routine 05/28/2025 1:42 PM EST Splenomegaly, not elsewhere classified URINALYSIS WITH REFLEX MICROSCOPIC Routine 05/28/2025 1:42 PM EST Unspecified symptoms and signs involving the genitourinary system GARCIA LENTZ VIRUS IGG, IGM, NUCLEAR AND EARLY ANTIBODIES Routine 05/28/2025 1:42 PM EST Splenomegaly, not elsewhere classified CBC AND DIFFERENTIAL Routine 05/28/2025 1:42 PM EST Splenomegaly, not elsewhere classified COMPREHENSIVE METABOLIC PANEL Routine 05/28/2025 1:42 PM EST Splenomegaly, not elsewhere classified CULTURE URINE Routine 05/28/2025 1:42 PM EST Unspecified symptoms and signs involving the genitourinary system US HEAD NECK SOFT TISSUE Routine 05/22/2025 2:36 PM EST Thyroid nodule THYROID STIMULATING HORMONE Routine 04/17/2025 2:09 PM EST Fatigue Myxedema heart disease CT CHEST WO CONTRAST Routine 04/14/2025 1:22 PM EST Multiple lung nodules METHYLMALONIC ACID, SERUM Routine 04/07/2025 3:00 PM EDT Fatigue Myxedema heart disease VITAMIN B12 Routine 04/07/2025 3:00 PM EDT Fatigue Myxedema heart disease ECG 12-LEAD Routine 04/03/2025 9:30 PM EDT Palpitations XR LUMBAR SPINE 2-3 VIEWS Routine 04/02/2025 3:06 PM EDT Left foot pain LIPID PANEL WITH REFLEX TO DIRECT LDL Routine 10/29/2024 11:30 AM EDT Hypothyroid IGT (impaired glucose tolerance) DYLAN (obstructive sleep apnea) GERD (gastroesophageal reflux disease) from Last 3 Months or Most Recently Relevant to Health Maintenance Results * (ABNORMAL) Urinalysis with reflex microscopic (05/28/2025 1:42 PM EST) Specific [place] Urine 1.028 1.003 - 1.030 LAB URINALYSIS - AUTOMATED METHOD 05/28/2025 3:27 PM [facility] pH, Urine 5.5 5.0 - 8.0 pH LAB URINALYSIS - AUTOMATED METHOD 05/28/2025 3:27 PM [facility] Leukocytes, Urine Negative Negative LAB URINALYSIS - AUTOMATED METHOD 05/28/2025 3:27 PM [facility] Nitrite, Urine Negative Negative LAB URINALYSIS - AUTOMATED METHOD 05/28/2025 3:27 PM [facility] Protein, Urine Negative <=Trace mg/dL LAB URINALYSIS - AUTOMATED METHOD 05/28/2025 3:27 PM [facility] Glucose, Urine Negative Negative mg/dL LAB URINALYSIS - AUTOMATED METHOD 05/28/2025 3:27 PM [facility] Ketones, Urine Trace(A) Negative mg/dL LAB URINALYSIS - AUTOMATED METHOD 05/28/2025 3:27 PM [facility] Urobilinogen, Urine 1.0 0.2 - 1.0 mg/dL LAB URINALYSIS - AUTOMATED METHOD 05/28/2025 3:27 PM [facility] Bilirubin, Urine Negative Negative LAB URINALYSIS - AUTOMATED METHOD 05/28/2025 3:27 PM [facility] Blood, Urine Negative Negative LAB URINALYSIS - AUTOMATED METHOD 05/28/2025 3:27 PM [facility] Urine Non-blood Collection / Unknown 05/28/2025 1:42 PM EST 05/28/2025 1:42 PM EST [facility] LAB URINE ORDERABLES Final Resul t [facility] [address] [place] [address], * (ABNORMAL) Garcia lentz virus IgG, IgM, nuclear and early antibodies (05/28/2025 1:42 PM EST) [facility] EBV VCA IgG Positive(A) Negative LAB CHEMISTRY METHOD 05/29/2025 10:50 AM EST [facility] EBV VCA IgM Negative Negative LAB CHEMISTRY METHOD 05/29/2025 10:50 AM EST [facility] EBV Nuclear Ag Ab Positive(A) Negative LAB CHEMISTRY METHOD 05/29/2025 10:50 AM EST [facility] EBV Early Ag Ab Negative Negative LAB CHEMISTRY METHOD 05/29/2025 10:50 AM EST [facility] Blood Venipuncture / Unknown 05/28/2025 1:42 PM EST 05/28/2025 1:42 PM EST [facility] LAB - 05/29/2025 10:50 AM EST Suggestive of a past Garcia-Lnetz Virus infection. [facility] LAB BLOOD ORDERABLES Final Resul t [facility] [address] [place] [address], * CBC auto differential (05/28/2025 1:42 PM EST) [facility] WBC 4.8 4.8 - 10.8 K/mcL LAB HEMETOLOGY METHOD 05/28/2025 3:29 PM [facility] RBC 5.00 4.50 - 5.50 M/mcL LAB HEMETOLOGY METHOD 05/28/2025 3:29 PM [facility] Hemoglobin 15.1 13.5 - 17.5 g/dL LAB HEMETOLOGY METHOD 05/28/2025 3:29 PM [facility] Hematocrit 43.2 42.0 - 54.0 % LAB HEMETOLOGY METHOD 05/28/2025 3:29 PM [facility] MCV 86.9 79.0 - 98.0 FL LAB HEMETOLOGY METHOD 05/28/2025 3:29 PM [facility] MCH 30.4 27.0 - 32.0 pcg LAB HEMETOLOGY METHOD 05/28/2025 3:29 PM [facility] MCHC 35.0 32.0 - 37.0 g/dL LAB HEMETOLOGY METHOD 05/28/2025 3:29 PM [facility] RDW 12.9 11.0 - 15.0 % LAB HEMETOLOGY METHOD 05/28/2025 3:29 PM [facility] Platelets 135 130 - 400 K/mcL LAB HEMETOLOGY METHOD 05/28/2025 3:29 PM [facility] MPV 11.0 7.0 - 11.0 FL LAB HEMETOLOGY METHOD 05/28/2025 3:29 PM [facility] NRBC 0.0 <1.0 % LAB HEMETOLOGY METHOD 05/28/2025 3:29 PM [facility] NRBC Absolute 0.00 <0.10 K/mcL LAB HEMETOLOGY METHOD 05/28/2025 3:29 PM [facility] Neutrophils Relative 50.0 % LAB HEMETOLOGY METHOD 05/28/2025 3:29 PM [facility] Lymphocytes Relative 36.8 % LAB HEMETOLOGY METHOD 05/28/2025 3:29 PM [facility] Monocytes Relative 8.0 % LAB HEMETOLOGY METHOD 05/28/2025 3:29 PM [facility] Eosinophils Relative 4.0 % LAB HEMETOLOGY METHOD 05/28/2025 3:29 PM [facility] Basophils Relative 0.8 % LAB HEMETOLOGY METHOD 05/28/2025 3:29 PM [facility] Immature Granulocytes Relative 0.4 % LAB HEMETOLOGY METHOD 05/28/2025 3:29 PM [facility] Neutrophils Absolute 2.38 1.50 - 7.00 K/mcL LAB HEMETOLOGY METHOD 05/28/2025 3:29 PM EST [facility] Lymphocytes Absolute 1.75 1.00 - 5.00 K/mcL LAB HEMETOLOGY METHOD 05/28/2025 3:29 PM EST [facility] Monocytes Absolute 0.38 0.20 - 1.00 K/mcL LAB HEMETOLOGY METHOD 05/28/2025 3:29 PM EST [facility] Eosinophils Absolute 0.19 0.00 - 0.50 [facility] LAB HEMETOLOGY METHOD 05/28/2025 3:29 PM EST [facility] Basophils Absolute 0.04 0.00 - 0.20 K/mcL LAB HEMETOLOGY METHOD 05/28/2025 3:29 PM EST [facility] Immature Granulocytes Absolute 0.02 0.00 - 0.03 [facility] LAB HEMETOLOGY METHOD 05/28/2025 3:29 PM EST [facility] Blood Venipuncture / Unknown 05/28/2025 1:42 PM EST 05/28/2025 1:42 PM EST [facility] LAB BLOOD ORDERABLES Final Resul t [facility] [address] [place] [address], * Culture urine (05/28/2025 1:42 PM EST) Culture, Urine <10,000 CFU/mL gram positive cocci, insignificant count, no further workup 05/29/2025 11:27 AM EST [facility] Urine Non-blood Collection / Unknown 05/28/2025 1:42 PM EST 05/28/2025 1:42 PM EST [facility] LAB MICROBIOLOGY - GENERAL ORDER KOBY Final Result [facility] [address] [place] [address], * (ABNORMAL) Comprehensive metabolic panel (05/28/2025 1:42 PM EST) Sodium 138 133 - 145 mmol/L 05/28/2025 5:34 PM [facility] Potassium 4.1 3.5 - 5.5 mmol/L 05/28/2025 5:34 PM [facility] Chloride 102 96 - 110 mmol/L 05/28/2025 5:34 PM [facility] CO2 26 21 - 32 mmol/L 05/28/2025 5:34 PM [facility] Anion Gap 10 3 - 11 05/28/2025 5:34 PM [facility] Glucose 91 70 - 100 mg/dL 05/28/2025 5:34 PM [facility] BUN 14 5 - 25 mg/dL 05/28/2025 5:34 PM [facility] Creatinine 1.01 0.70 - 1.30 mg/dL 05/28/2025 5:34 PM [facility] eGFR 99 >=60 mL/min/1. 73m2 05/28/2025 5:34 PM [facility] Comment:Calculation based on the Chronic Kidney Disease Epidemiology Collaboration (CKD-EPI) equation refit without adjustment for race. BUN/Creatinine Ratio 13.9 05/28/2025 5:34 PM [facility] Calcium 8.7 8.5 - 10.5 mg/dL 05/28/2025 5:34 PM [facility] AST (SGOT) 51(H) 10 - 42 unit/L 05/28/2025 5:34 PM [facility] ALT (SGPT) 118(H) 10 - 60 unit/L 05/28/2025 5:34 PM EST [facility] Alkaline Phosphatase 77 42 - 121 unit/L 05/28/2025 5:34 PM EST [facility] Total Protein 7.0 6.0 - 8.0 g/dL 05/28/2025 5:34 PM EST [facility] Albumin 4.3 3.2 - 5.0 g/dL 05/28/2025 5:34 PM EST [facility] Total Bilirubin 0.4 0.0 - 1.4 mg/dL 05/28/2025 5:34 PM EST [facility] Blood Venipuncture / Unknown 05/28/2025 1:42 PM EST 05/28/2025 1:42 PM EST [facility] LAB BLOOD ORDERABLES Final Resul t [facility] [address] [place] [address], [place] [phone] * US Head Neck Soft Tissue (05/22/2025 2:36 PM EST) Anatomical Region Laterality Modality Head and Neck Ultrasound 05/27/2025 2:28 PM EST Impressions 05/27/2025 2:30 PM EST Normal thyroid ultrasound. The suspected left lobe nodule identified on the CT is not identified. Telerad AYLIN ([id number]) -------- FINAL REPORT -------- Dictated By: Evelyn Donahue Dictated Date: 05/27/2025 14:28 ET Assigned Physician: Evelyn Donahue Reviewed and Electronically Signed By: Evelyn Donahue Signed Date: 05/27/2025 14:30 ET Workstation ID: [id number] Transcribed By: Self Edit Transcribed Date: 05/27/2025 14:28 ET Narrative 05/27/2025 2:30 PM EST HISTORY: Left thyroid nodule noted on recent thoracic CT. COMPARISON: Thoracic CT 04/14/25 FINDINGS: High resolution real-time imaging of the thyroid gland was performed. RIGHT LOBE: The right lobe is normal in size, measuring 4.2 cm in length by 1.2 cm in depth by 1.4 cm in width. The thyroid parenchyma is homogeneous, without focal nodule. LEFT LOBE: The left lobe is normal in size, measuring 3.7 cm in length by 1.0 cm in depth by 1.2 cm in width. The thyroid parenchyma is homogeneous, without focal nodule. ISTHMUS: The isthmus is normal in thickness, measuring 0.2 cm. Procedure Note Evelyn Donahue MD - 05/27/2025 HISTORY: Left thyroid nodule noted on recent thoracic CT. COMPARISON: Thoracic CT 04/14/25 FINDINGS: High resolution real-time imaging of the thyroid gland was performed. RIGHT LOBE: The right lobe is normal in size, measuring 4.2 cm in length by 1.2 cm indepth by 1.4 cm in width. The thyroid parenchyma is homogeneous, without focal nodule. LEFT LOBE: The left lobe is normal in size, measuring 3.7 cm in length by 1.0 cm indepth by 1.2 cm in width. The thyroid parenchyma is homogeneous, withoutfocal nodule. ISTHMUS: The isthmus is normal in thickness, measuring 0.2 cm. IMPRESSION: Normal thyroid ultrasound. The suspected left lobe nodule identified onthe CT [place] ([id number]) -------- FINAL REPORT -------- Dictated By: Evelyn Donahue Dictated Date: 05/27/2025 14:28 ET Assigned Physician: Evelyn Donahue Reviewed and Electronically Signed By: Evelyn Donahue Signed Date: 05/27/2025 14:30 ET Workstation ID: [id number] Transcribed By: Self Edit Transcribed Date: 05/27/2025 14:28 ET us Viral Ramos DO [facility] [place] PROCEDURES Final Resul t * Thyroid stimulating hormone (04/17/2025 2:09 PM EST) TSH 3.36 0.40 - 4.00 mcIU/mL LAB CHEMISTRY METHOD 04/17/2025 3:40 PM EST [facility] ([facility] Blood Venous blood specimen / Unknown Venipuncture / Unknown 04/17/2025 2:09 PM EST 04/17/2025 2:09 PM EST us Viral Ramos DO LAB BLOOD ORDERABLES Final Re sult [facility] ([facility]) [facility] [address] [place] [address], [place] [phone] * CT Chest wo Contrast (04/14/2025 1:22 PM EST) Anatomical Region Laterality Modality Body Computed Tomogra phy 04/17/2025 2:05 PM EST Impressions 04/17/2025 2:30 PM EST Right lower lobe wedge resection. Stable bilateral pulmonary nodules, measuring up to 5 mm in diameter. Prominent hepatic steatosis. Splenomegaly. -------- FINAL REPORT -------- Dictated By: Aleks Johnston Dictated Date: 04/17/2025 14:05 ET Assigned Physician: Aleks Johnston Reviewed and Electronically Signed By: lAeks Johnston Signed Date: 04/17/2025 14:30 ET Workstation ID: [id number] Transcribed By: Self Edit Transcribed Date: 04/17/2025 14:05 ET Narrative 04/17/2025 2:30 PM EST PROCEDURE: CT of the chest without intravenous contrast. TECHNIQUE: CT of the chest without intravenous contrast administration. Coronal and sagittal reformats and MIP reconstructions were created. Dose length product: 385 mGy-cm. HISTORY: Pulmonary nodules COMPARISON: 10/09/2024. FINDINGS: LUNGS/PLEURA: Trace aspirated debris in the trachea. Postsurgical changes of a right lower lobe wedge resection. Stable scattered pulmonary nodules, measuring up to 5 mm. No pleural effusion or pneumothorax. MEDIASTINUM/WILLIE: Small left thyroid nodule, which could be better evaluated with ultrasound. No mediastinal mass or lymphadenopathy. No appreciable hilar lymphadenopathy on limited noncontrast evaluation. VASCULATURE: Normal caliber pulmonary arteries. 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 CARDIAC: Normal heart size. No coronary artery calcification. CHEST WALL: No axillary or supraclavicular lymphadenopathy. LIMITED ABDOMEN: Splenomegaly. Prominent hepatic steatosis. BONES: Slight S-shaped thoracic curvature. Stable mild superior endplate deformities at T6 and T7. Procedure Note Aleks Johnston MD - 04/17/2025 PROCEDURE: CT of the chest without intravenous contrast. TECHNIQUE: CT of the chest without intravenous contrast administration.Coronal and sagittal reformats and MIP reconstructions were created. Dose length product: 385 mGy-cm. HISTORY: Pulmonary nodules COMPARISON: 10/09/2024. FINDINGS: LUNGS/PLEURA: Trace aspirated debris in the trachea. Postsurgical changesof a right lower lobe wedge resection. Stable scattered pulmonarynodules, measuring up to 5 mm. No pleural effusion or pneumothorax. MEDIASTINUM/WILLIE: Small left thyroid nodule, which could be betterevaluated with ultrasound. No mediastinal mass or lymphadenopathy. Noappreciable hilar lymphadenopathy on limited noncontrast evaluation. VASCULATURE: Normal caliber pulmonary arteries. Anomalous origin of theleft vertebral artery from the aortic arch. CARDIAC: Normal heart size. No coronary artery calcification. CHEST WALL: No axillary or supraclavicular lymphadenopathy. LIMITED ABDOMEN: Splenomegaly. Prominent hepatic steatosis. BONES: Slight S-shaped thoracic curvature. Stable mild superior endplatedeformities at T6 and T7. IMPRESSION: Right lower lobe wedge resection. Stable bilateral pulmonary nodules, measuring up to 5 mm in diameter. Prominent hepatic steatosis. Splenomegaly. -------- FINAL REPORT -------- Dictated By: Aleks Johnston Dictated Date: 04/17/2025 14:05 ET Assigned Physician: Aleks Johnston Reviewed and Electronically Signed By: Aleks Johnston Signed Date: 04/17/2025 14:30 ET Workstation ID: [id number] Transcribed By: Self Edit Transcribed Date: 04/17/2025 14:05 ET us Perry VIERA IMG CT PROCEDURES Final Result * Methylmalonic acid, serum (04/07/2025 3:00 PM EDT) Methylmalonic Acid 0.28 <0.40 umol/L 04/11/2025 8:33 AM EDT [facility] Comment: If applicable, any drug confirmation testing reported here was developed and the performance characteristics determined by [facility]. This confirmation testing has not been cleared or approved by the FDA. The laboratory is regulated under CLIA as qualified to perform high-complexity testing. This test is used for patient testing purposes. It should not be regarded as investigational or for research. Test performed at [facility], [address] , [place] [address] Stephanie Alejandro MD, PhD - [employer]er Apprentice Blood Venous blood specimen / Unknown Venipuncture / Unknown 04/07/2025 3:00 PM EDT 04/07/2025 3:[address] [facility] BLOOD ORDERABLES Final Re sult Performing Organization Address City/[facility]/ZIP Co de Phone Number [facility] [address] [place] [address] * Vitamin B12 (04/07/2025 3:00 PM EDT) [facility] Vitamin B-12 615 250 - 900 pcg/mL LAB CHEMISTRY METHOD 04/07/2025 8:33 PM EDT [facility] Blood Venous blood specimen / Unknown Venipuncture / Unknown 04/07/2025 3:00 PM EDT 04/07/2025 3:[address] [facility] BLOOD ORDERABLES Final Re sult [facility] [address] [place] [address], * ECG 12 lead (04/03/2025 9:30 PM EDT) Ventricular Rate ECG 74 BPM GEMUSE Atrial Rate 74 BPM GEMUSE P-R Interval 176 ms GEMUSE QRS Duration 110 ms GEMUSE Q-T Interval 392 ms GEMUSE QTc 435 ms GEMUSE P Wave [place] 33 degrees GEMUSE R [place] 7 degrees GEMUSE T [place] 26 degrees GEMUSE ECG Interpretation Normal sinus rhythm Normal ECG When compared with ECG of 06/27/2023 No changes from previous tracing are noted Confirmed by RAJENDRA SHRESTHA ([id number]) on 04/30/2025 4:10:49 PM GEMUSE 04/03/2025 3:16 PM EDT 04/30/2025 4:10 PM EST Taylor Rivera NP ECG ORDERABLES Edite d Result - Final GEMUSE * XR Lumbar Spine 2-3 Views (04/02/2025 3:06 PM EDT) Anatomical Region Laterality Modality Spine, L-spine Computed Radiogr aphy 04/24/2025 8:19 PM EST Impressions 04/24/2025 8:20 PM EST No acute fracture or dislocation of the lumbar spine. -------- FINAL REPORT -------- Dictated By: Valeriano Fontaine Dictated Date: 04/24/2025 20:19 ET Assigned Physician: Valeriano Fontaine Reviewed and Electronically Signed By: Valeriano Fontaine Signed Date: 04/24/2025 20:20 ET Workstation ID: [id number] Transcribed By: Self Edit Transcribed Date: 04/24/2025 20:19 ET Narrative 04/24/2025 8:20 PM EST HISTORY: RADICULOPATHY TECHNIQUE: AP and lateral views of the lumbar spine COMPARISON: None FINDINGS: Vertebral body height is grossly maintained. Decreased disc height at L5-S1 with endplate sclerosis. No acute fracture or dislocation is seen. The spinal alignment is well maintained without evidence of spondylolisthesis. The sacroiliac joints are unremarkable. Procedure Note Valeriano Fontaine MD - 04/24/2025 HISTORY: RADICULOPATHY TECHNIQUE: AP and lateral views of the lumbar spine COMPARISON: None FINDINGS: Vertebral body height is grossly maintained. Decreased disc height atL5-S1 with endplate sclerosis. No acute fracture or dislocation is seen.The spinal alignment is well maintained without evidence ofspondylolisthesis. The sacroiliac joints are unremarkable. IMPRESSION: No acute fracture or dislocation of the lumbar spine. -------- FINAL REPORT -------- Dictated By: Valeriano Fontaine Dictated Date: 04/24/2025 20:19 ET Assigned Physician: Valeriano Fontaine Reviewed and Electronically Signed By: Valeriano Fontaine Signed Date: 04/24/2025 20:20 ET Workstation ID: [id number] Transcribed By: Self Edit Transcribed Date: 04/24/2025 20:19 ET Moncho Mensah DPM IMG XR PROCEDURES Final Res ult * (ABNORMAL) Lipid panel with reflex to direct LDL (10/29/2024 11:30 AM EDT) Cholesterol 200 0 - 200 mg/dL LAB CHEMISTRY METHOD 10/29/2024 4:16 PM [facility] Triglycerides 245(H) 0 - 150 mg/dL LAB CHEMISTRY METHOD 10/29/2024 4:16 PM [facility] HDL 35(L) >=40 mg/dL LAB CHEMISTRY METHOD 10/29/2024 4:16 PM [facility] LDL Calculated 116(H) 0 - 100 mg/dL LAB CHEMISTRY METHOD 10/29/2024 4:16 PM [facility] VLDL Cholesterol Joni 49 mg/dL LAB CHEMISTRY METHOD 10/29/2024 4:16 PM [facility] Non HDL Chol. (LDL+VLDL) 165(H) <145 mg/dL LAB CHEMISTRY METHOD 10/29/2024 4:16 PM [facility] Chol/HDL Ratio 5.7(H) 0.0 - 4.4 LAB CHEMISTRY METHOD 10/29/2024 4:16 PM [facility] Blood Venous blood specimen / Unknown Venipuncture / Unknown 10/29/2024 11:30 AM EDT 10/29/2024 11:30 AM EDT Viral Ramos DO LAB BLOOD ORDERABLES Final Re sult [facility] ([facility]) [facility] [address] [place] [address], from Last 3 Months or Most Recently Relevant to Health Maintenance Insurance [facility] [place] [address] Care Teams Facility Planner Relationship Specialty Start Date End Date Viral Ramos DO [address] [place] [phone] PCP - General Internal Medicine 08/25/20
--- OUTSIDE RECORDS SUMMARY | 2025-05-29 13:16 | XMS_ITS | Encounter Summary ---
Author Organization [facility] Address [address] [place] [address] Care Team Providers Care Toll Testboard Worker Name Role Phone PingViral sullivan Primary Care Provider [phone] Reason for Visit * Reason Onset Date Comments Provider Call Back 04/23/2025 Encounter Details Date Type Department Care Team ([facility] st Contact Info) Description 04/23/2025 Telephone Gastroenterology - [address] [phone] Tyler Langston MD [address] [address] Social History Tobacco Use Types Packs/Day Years [...] PM EST documented as of this encounter Progress Notes * Erum Matute MA - 04/24/2025 11:44 AM EST Spoke to mom, conversation took a different route it wasn't even regarding Urban. She was complaining about appointment that are showing up in my chart for her house hold when they don't even have an appointment scheduled. Mom does not want to speak to me or a clinical staff, she wants to talk to digital content manager and refuses to say regarding what matter. FYI: this ct report was forwarded to to review last week. * Alexus Velasquez - 04/23/2025 4:17 PM EST Patients mother called stating that Urban has issues with his spleen recently showed on his CT and wants to know if he can be put on cancellation list to be seen sooner. Told mother that we have no available appointments so it is hard to get patients in sooner. He might be getting another referral for someone else as well to look into this issue. documented in this encounter Plan of Treatment Not on file documented as of this encounter Visit Diagnoses Not on filedocumented in this encounter Care Teams Toll Testboard Worker Relationship Specialty Start Date End Date Viral Ramos DO [address] [place] [phone] PCP - General Internal Medicine 08/25/20 documented as of this encounter
--- OUTSIDE RECORDS SUMMARY | 2025-05-29 13:16 | XMS_ITS | Encounter Summary ---
Author Organization [facility] Address [address] [place] [phone] Phone Care Team Providers Care Marketing Director Name Role Phone Unavailable Primary Care Provider Unavailabl e Encounter Details Date Type Department Care Team (Late st Contact Info) Description 05/24/2012 Documentation [facility] [place] [facility] [place] [address] Family Medicine, Physician [address] [place], [place] [id number] Social History Tobacco Use Types Packs/Day Years [...]
--- OUTSIDE RECORDS SUMMARY | 2025-05-29 13:16 | XMS_ITS | Clinical Summary ---
Author Organization [facility] Address [address] [place] [phone] Phone Care Team Providers Care Top Executive Name Role Phone Unavailable Primary Care Provider [...] low BP,scoliosis,migraines,arrythmia Other Family history of Sudden /NH under age 55, No family history of [...] of 2 - 13+ 2-dose series) 2002 HPV Vaccines (1 - 3-dose SCDM series) 2016 DTaP,Tdap,and Td Vaccines (7 - Td or Tdap) 02/18/2018 02/19/2008, 01/02/2001, 11/11/1994, Additional history exists Influenza Vaccines (#1) 2025 COVID-19 Vaccine ( - 2024- season) 2025 HIB Vaccines Completed 02/10/1991, 0 06/1990, 06/12/1990 IPV Vaccines Completed 11/11/1994, 02/12, 03/12/1990, Additional history exists MMR Vaccines Completed 11/11/1994, 03/11/1991 Pneumococcal Vaccine Aged Out 02/13/2001 No long er eligible based on patient's age to complete this topic Hepatitis B Vaccines Completed 07/13/2001, 02/13/2001, 01/02/2001 Meningococcal Vaccine Completed 11/27/2006 Hepatitis A Vaccines Aged Out No long er eligible based on patient's age to complete this topic Men B Vaccine Aged Out No longer elig ible based on patient's age to complete this topic
== END 2025-05-29 10:59 | disposition home or self-care (01) ==
LOC: HO.HPS 10:32
PROVIDERS: PCP Internal Medicine; Visit Provider Hospitalist
DX: J45.40 Moderate persistent asthma, uncomplicated (principal); G47.33 Obstructive sleep apnea (adult) (pediatric); G47.61 Periodic limb movement disorder; J84.9 Interstitial pulmonary disease, unspecified
CPT/HCPCS: 99214

== ENCOUNTER → 2025-05-29 10:31 | Outpatient (BNVA) | payer OTHER, SELFPAY | PROVIDERS: PCP Internal Medicine; Visit Provider Hospitalist | DX: J45.40 Moderate persistent asthma, uncomplicated (principal); G47.33 Obstructive sleep apnea (adult) (pediatric); G47.61 Periodic limb movement disorder; J84.9 Interstitial pulmonary disease, unspecified; Z79.899 Other long term (current) drug therapy | CPT/HCPCS: 99212 ==